=== PATIENT | female | born 1950 | race Caucasian/White ===

== ENCOUNTER → 2017-07-02 | Outpatient (CLI) | payer MEDICARE ==
--- NOTE | 2017-07-02 16:48 | XR ---
EXAMINATION TYPE: XR lumbosacral spine min 4V DATE OF EXAM: 07/02/2017 COMPARISON: NONE HISTORY: 67-year-old female with right-sided low back pain TECHNIQUE: 5 views FINDINGS: Degenerated dextro convex scoliosis. Hypertrophic facet arthropathy lower lumbar spine. No pars inter articularis defect identified. Advanced degenerative disc disease with disc vacuum L4-L5 and mild at additional levels throughout th e lumbar spine. Grade 1 anterolistheses at L3-L4, L4-L5, and L5-S1. Vertebral body heights are maintained. Baastrup's disease. IMPRESSION: 1. Degenerated dextroconvex scoliosis. 2. Hypertrophic facet arthropathy throughout with grade 1 anterolistheses from L3 through S1 levels. 3. Advanced degenerative disc disease at L4-L5 and at least mild at other levels in the lumbar spine. 4. Baastrup's disease.
== END | disposition home or self-care (01) ==
LOC: RADXRYALE 12:43
PROVIDERS: ATTEND Internal Medicine
DX: M51.16 Intervertebral disc disorders with radiculopathy, lumbar region (principal); M43.17 Spondylolisthesis, lumbosacral region; M46.97 Unspecified inflammatory spondylopathy, lumbosacral region; M48.27 Kissing spine, lumbosacral region; M41.87 Other forms of scoliosis, lumbosacral region
CPT/HCPCS: 72110

== ENCOUNTER → 2018-02-07 | Outpatient (CLI) | payer MEDICARE ==
--- NOTE | 2018-02-07 10:59 | MR ---
MR lumbar spine wo con Sciatica of right side Multiplanar, multiecho imaging of the lumbar spine was obtained without contrast on a 3 Leandra magnet. REFERENCE:None. FINDINGS: There are extrarenal pelves present bilaterally. Paraspinal soft tissues are otherwise unr emarkable. There is a moderate S-shaped scoliosis, convex to the right in the lumbar region and to the left of t he thoracic region. There is a degenerative grade 1 spondylolisthesis of L4 on L5. Alignment is other davis maintained. Cord signal is maintained. The conus ends normally at the level of the mid body of L1. At T12-L1, intervertebral foramina appear well maintained. There is no significant compressive discop athy. There is mild facet arthropathy. At L1-2, there is a diffuse disc displacement slightly eccentric towards the left. The intervertebral foramina are well maintained. There is hypertrophic change and capsulitis in the facets. At L2-3, intervertebral foramina appear reasonably well-maintained. There is a bilobed disc displacem ent. This hypertrophic change and capsulitis within the facets. There is mild trefoiling of the theca l sac. L3-4, the intervertebral foramina are reasonably well-maintained. There is a right paracentral disc d isplacement mildly deforming the thecal sac. There is hypertrophic change and capsulitis in the facet s. At L4-5, there is disc space loss. Intervertebral foramina appear reasonably well-maintained. There i s marked facet arthropathy. There is a degenerative 1 spondylolisthesis of L4 on L5. There is a promi nent pseudodisc. There is moderate to severe central canal stenosis. L5-S1, the intervertebral foramina are well maintained. There is no significant compressive discopath y. There are hypertrophic changes in the facets. IMPRESSION: 1. DEGENERATIVE GRADE 1 SPONDYLOLISTHESIS OF L4 AND L5 CAUSING MODERATE TO SEVERE CENTRAL CANAL STENO SIS. 2. DIFFUSE DEGENERATIVE DISC DISEASE AND FACET ARTHROPATHY.
== END ==
LOC: RADMRIMAIN 10:05
PROVIDERS: ATTEND Internal Medicine
DX: M48.061 Spinal stenosis, lumbar region without neurogenic claudication (principal); M43.16 Spondylolisthesis, lumbar region; M51.16 Intervertebral disc disorders with radiculopathy, lumbar region; M46.96 Unspecified inflammatory spondylopathy, lumbar region
CPT/HCPCS: 72148

== ENCOUNTER 2019-04-06 16:21 | Inpatient (IN) | payer MEDICARE ==
[2019-04-06] MEDS ORDERED: MORPHINE SULFATE 4 MG/ML SYRINGE IVP STA (16:28)
[2019-04-06] MEDS ORDERED: SODIUM CHLORIDE 0.9% 1,000 ML IV STA (16:28)
[2019-04-06] MEDS ORDERED: PROPOFOL 10 MG/ML 20 ML VIAL IV ONE (16:38)
[2019-04-06 17:20] LABS: Basophils % (A) 0 %; Eosinophils # (A) 0.1 k/uL (0-0.7); Eosinophils % (A) 1 %; HCT 38.6 % (34.0-46.0); HGB 12.6 gm/dL (11.4-16.0); Lymphocytes # (A) 0.9 k/uL (1.0-4.8); Lymphocytes % (A) 10 %; MCH 30.3 pg (25.0-35.0); MCHC 32.8 g/dL (31.0-37.0); MCV 92.5 fL (80.0-100.0); Mean Platelet Volume 8.6; Monocytes # (A) 0.4 k/uL (0-1.0); Monocytes % (A) 4 %; Neutrophils # (A) 7.6 k/uL (1.3-7.7); Neutrophils % (A) 85 %; Platelet Count 236 k/uL (150-450); RBC 4.17 m/uL (3.80-5.40); RDW 12.9 % (11.5-15.5)
[2019-04-06 17:29] LABS: Partial Thromboplastin Time 23.5 sec (22.0-30.0); Prothrombin Time 10.6 sec (9.0-12.0)
[2019-04-06 17:31] LABS: Appearance,Urine Clear (Clear); Bilirubin,Urine Negative (Negative); Blood,Urine Negative (Negative); Color,Urine Colorless; Glucose,Urine (UA) Negative (Negative); Ketones,Urine Negative (Negative); Leukocyte Esterase,Urine Negative (Negative); Nitrite,Urine Negative (Negative); PH, Urine 7.5 (5.0-8.0); Protein,Urine Negative (Negative); Specific Gravity,Urine 1.006 (1.001-1.035); Urobilinogen,Urine <2.0 mg/dL (<2.0)
[2019-04-06 17:34] LABS: ALT 14 U/L (4-34); AST 28 U/L (14-36); African American GFR (CKD) >90 (>60 ml/min/1.73 sqM); Albumin 3.7 g/dL (3.5-5.0); Alkaline Phosphatase 60 U/L (38-126); Anion Gap 8 mmol/L; Blood Urea Nitrogen 14 mg/dL (7-17); Calcium 8.7 mg/dL (8.4-10.2); Carbon Dioxide 23 mmol/L (22-30); Chloride 106 mmol/L (98-107); Creatine Kinase 93 U/L (30-135); Glucose 101 mg/dL (74-99); Magnesium 1.8 mg/dL (1.6-2.3); Non-African American GFR(CKD) >90 (>60 ml/min/1.73 sqM); Phosphorus 2.9 mg/dL (2.5-4.5); Sodium 137 mmol/L (137-145); Total Bilirubin 0.5 mg/dL (0.2-1.3); Total Protein 6.4 g/dL (6.3-8.2)
--- NOTE | 2019-04-06 17:47 | ED ---
Weakness HPI - General Chief complaint: Fall Stated complaint: fall Time Seen by Provider: 04/06/19 16:24 Source: patient, RN notes reviewed, old records reviewed Mode of arrival: EMS - History of Present Illness Initial comments: This is a 68-year-old female DF for evaluation. Patient has a for evaluation regards to significant right-sided femur pain, continue severe pain upon transfer to the ER. Patient has no other traumatic injury noted denying had a neck pain, no loss of consciousness, patient of trip and fall while at home today. Trip over a garbage can landing and right-sided, severe history of osteopenia no longer on therapy. Patient has multiple orthopedic surgeries yet not this hospital -: hour(s) (Pain status post fall) Location: RLE Severity: severe (Pain, fracture deformity) Severity scale (1-10): 9 Consistency: constant Improves with: none Worsens with: none Context: trauma/injury Associated Symptoms: denies other symptoms - Related Data Home Medications Medication Instructions Recorded Confirmed ALPRAZolam [Xanax] 0.25 mg PO DAILY PRN 04/06/19 04/06/19 Alendronate Sodium [Fosamax] 70 mg PO SA 04/06/19 04/06/19 Citalopram Hydrobromide 40 mg PO DAILY 04/06/19 04/06/19 [Citalopram HBr] Cyanocobalamin (Vitamin B-12) 1,000 mcg PO DAILY 04/06/19 04/06/19 [Vitamin B-12] Fexofenadine HCl [Stefania Allergy] 180 mg PO DAILY 04/06/19 04/06/19 Gabapentin [Neurontin] 300 mg PO DAILY 04/06/19 04/06/19 Meloxicam 7.5 mg PO BID 04/06/19 04/06/19 Olmesartan Medoxomil [Benicar] 20 mg PO DAILY 04/06/19 04/06/19 Oxybutynin Chloride [Oxybutynin 15 mg PO DAILY 04/06/19 04/06/19 Chloride ER] Allergies Allergy/AdvReac Type Severity Reaction Status Date / Time Penicillins Allergy Swelling Verified 04/06/19 19:36 Review of Systems ROS Statement: Those systems with pertinent positive or pertinent negative responses have been documented in the HPI. ROS Other: All systems not noted in ROS Statement are negative. Past Medical History Past Medical History: Hypertension History of Any Multi-Drug Resistant Organisms: None Reported Past Surgical History: Back Surgery, Orthopedic Surgery Past Psychological History: No Psychological Hx Reported Smoking Status: Never smoker Past Alcohol Use History: Occasional Past Drug Use History: None Reported General Exam General appearance: alert, in no apparent distress Head exam: Present: atraumatic, normocephalic, normal inspection Eye exam: Present: normal appearance, PERRL, EOMI. Absent: scleral icterus, conjunctival injection, periorbital swelling ENT exam: Present: normal exam, mucous membranes moist Neck exam: Present: normal inspection. Absent: tenderness, meningismus, lymphadenopathy Respiratory exam: Present: normal lung sounds bilaterally. Absent: respiratory distress, wheezes, rales, rhonchi, stridor Cardiovascular Exam: Present: regular rate, normal rhythm, normal heart sounds. Absent: systolic murmur, diastolic murmur, rubs, gallop, clicks GI/Abdominal exam: Present: soft, normal bowel sounds. Absent: distended, tenderness, guarding, rebound, rigid Extremities exam: Present: normal inspection, full ROM, normal capillary refill, other (Significant deformity of right lower extremity, positive pulses dorsalis pedis posterior tibialis +2). Absent: tenderness, pedal edema, joint swelling, calf tenderness Back exam: Present: normal inspection Neurological exam: Present: alert, oriented X3, CN II-XII intact Psychiatric exam: Present: normal affect, normal mood Skin exam: Present: warm, dry, intact, normal color. Absent: rash Course Vital Signs 04/06/19 04/06/19 04/06/19 16:38 17:07 17:11 Temperature 98.3 F Pulse Rate 90 92 88 Pulse Rate [ Pulse Oximetery ] Respiratory 20 16 16 Rate Blood Pressure 192/109 197/105 188/99 Blood Pressure [Right Arm] O2 Sat by Pulse 97 99 94 L Oximetry 04/06/19 04/06/19 04/06/19 17:13 17:18 17:20 Temperature Pulse Rate 86 87 Pulse Rate [ Pulse Oximetery ] Respiratory 16 15 Rate Blood Pressure 158/76 158/76 Blood Pressure [Right Arm] O2 Sat by Pulse 96 100 95 Oximetry 04/06/19 04/06/19 04/06/19 18:00 19:31 20:00 Temperature Pulse Rate 86 90 91 Pulse Rate [ Pulse Oximetery ] Respiratory 6 L 16 18 Rate Blood Pressure 149/89 142/72 142/72 Blood Pressure [Right Arm] O2 Sat by Pulse 98 98 98 Oximetry 04/06/19 04/06/19 04/06/19 20:49 20:56 21:00 Temperature 99.0 F Pulse Rate 87 88 Pulse Rate [ 80 Pulse Oximetery ] Respiratory 15 16 18 Rate Blood Pressure 133/87 131/81 Blood Pressure 153/71 [Right Arm] O2 Sat by Pulse 96 99 Oximetry 04/06/19 04/06/19 04/06/19 22:00 23:00 23:02 Temperature 98.0 F Pulse Rate 88 77 Pulse Rate [ Pulse Oximetery ] Respiratory 16 16 Rate Blood Pressure 123/81 121/71 Blood Pressure [Right Arm] O2 Sat by Pulse 98 98 Oximetry - Reevaluation(s) Reevaluation #1: Medical record is reviewed Patient femur fracture is reduced, pain is controlled - Consultations Consultation #1: Spoke with Dr. Fox who is agreeable for admission EKG Findings - EKG Comments: EKG Findings:: EKG shows sinus rhythm rate of 91, OK 136, QRS 76, QTc 455 Procedures - [place] Protocol (Time Out) Procedure Performed:: Moderate sedation reduction right femur Performing Provider: Nic Sotelo Nurse: Tylor Rocha Respiratory Therapist: Nazia Kowalski Patient Identification (2 identifiers required): Chart, Verbal, Name Patient/Legal Assistant Guest Services Manager has Confirmed: Identity Site: rt femur Site Marked: No Site Verified With Patient/Guardian: Yes Final Confirmation: Procedure, Site, Patient Position, Confirmed w/Provider Medical Decision Making - Medical Decision Making 5 female here for evaluation status post trip and fall mechanical trip and fall with right midshaft femur fracture. Patient will be admitted for orthopedic evaluation treatment, pain control and management - Lab Data Result diagrams: 04/06/19 16:47 04/06/19 16:47 Lab Results 04/06/19 04/06/19 04/06/19 Range/Units 16:47 16:47 16:47 WBC 9.0 (3.8-10.6) k/uL RBC 4.17 (3.80-5.40) m/uL Hgb 12.6 (11.4-16.0) gm/dL Hct 38.6 (34.0-46.0) % MCV 92.5 (80.0-100.0) fL MCH 30.3 (25.0-35.0) pg MCHC 32.8 (31.0-37.0) g/dL RDW 12.9 (11.5-15.5) % Plt Count 236 (150-450) k/uL Neutrophils % 85 % Lymphocytes % 10 % Monocytes % 4 % Eosinophils % 1 % Basophils % 0 % Neutrophils # 7.6 (1.3-7.7) k/uL Lymphocytes # 0.9 L (1.0-4.8) k/uL Monocytes # 0.4 (0-1.0) k/uL Eosinophils # 0.1 (0-0.7) k/uL Basophils # 0.0 (0-0.2) k/uL PT (9.0-12.0) sec INR (<1.2) APTT (22.0-30.0) sec Sodium 137 (137-145) mmol/L Potassium 4.0 (3.5-5.1) mmol/L Chloride 106 (98-107) mmol/L Carbon Dioxide 23 (22-30) mmol/L Anion Gap 8 mmol/L BUN 14 (7-17) mg/dL Creatinine 0.66 (0.52-1.04) mg/dL Est GFR (CKD-EPI)AfAm >90 (>60 ml/min/1.73 sqM) Est GFR (CKD-EPI)NonAf >90 (>60 ml/min/1.73 sqM) Glucose 101 H (74-99) mg/dL Plasma Lactic Acid Matti 1.1 (0.7-2.0) mmol/L Calcium 8.7 (8.4-10.2) mg/dL Phosphorus 2.9 (2.5-4.5) mg/dL Magnesium 1.8 (1.6-2.3) mg/dL Total Bilirubin 0.5 (0.2-1.3) mg/dL AST 28 (14-36) U/L ALT 14 (4-34) U/L Alkaline Phosphatase 60 (38-126) U/L Creatine Kinase 93 (30-135) U/L Troponin I (0.000-0.034) ng/mL Total Protein 6.4 (6.3-8.2) g/dL Albumin 3.7 (3.5-5.0) g/dL Urine Color Urine Appearance (Clear) Urine pH (5.0-8.0) Ur Specific Manly (1.001-1.035) Urine Protein (Negative) Urine Glucose (UA) (Negative) Urine Ketones (Negative) Urine Blood (Negative) Urine Nitrite (Negative) Urine Bilirubin (Negative) Urine Urobilinogen (<2.0) mg/dL Ur Leukocyte Esterase (Negative) 04/06/19 04/06/19 04/06/19 Range/Units 16:47 16:47 16:47 WBC (3.8-10.6) k/uL RBC (3.80-5.40) m/uL Hgb (11.4-16.0) gm/dL Hct (34.0-46.0) % MCV (80.0-100.0) fL MCH (25.0-35.0) pg MCHC (31.0-37.0) g/dL RDW (11.5-15.5) % Plt Count (150-450) k/uL Neutrophils % % Lymphocytes % % Monocytes % % Eosinophils % % Basophils % % Neutrophils # (1.3-7.7) k/uL Lymphocytes # (1.0-4.8) k/uL Monocytes # (0-1.0) k/uL Eosinophils # (0-0.7) k/uL Basophils # (0-0.2) k/uL PT 10.6 (9.0-12.0) sec INR 1.0 (<1.2) APTT 23.5 (22.0-30.0) sec Sodium (137-145) mmol/L Potassium (3.5-5.1) mmol/L Chloride (98-107) mmol/L Carbon Dioxide (22-30) mmol/L Anion Gap mmol/L BUN (7-17) mg/dL Creatinine (0.52-1.04) mg/dL Est GFR (CKD-EPI)AfAm (>60 ml/min/1.73 sqM) Est GFR (CKD-EPI)NonAf (>60 ml/min/1.73 sqM) Glucose (74-99) mg/dL Plasma Lactic Acid Matti (0.7-2.0) mmol/L Calcium (8.4-10.2) mg/dL Phosphorus (2.5-4.5) mg/dL Magnesium (1.6-2.3) mg/dL Total Bilirubin (0.2-1.3) mg/dL AST (14-36) U/L ALT (4-34) U/L Alkaline Phosphatase (38-126) U/L Creatine Kinase (30-135) U/L Troponin I <0.012 (0.000-0.034) ng/mL Total Protein (6.3-8.2) g/dL Albumin (3.5-5.0) g/dL Urine Color Colorless Urine Appearance Clear (Clear) Urine pH 7.5 (5.0-8.0) Ur Specific Manly 1.006 (1.001-1.035) Urine Protein Negative (Negative) Urine Glucose (UA) Negative (Negative) Urine Ketones Negative (Negative) Urine Blood Negative (Negative) Urine Nitrite Negative (Negative) Urine Bilirubin Negative (Negative) Urine Urobilinogen <2.0 (<2.0) mg/dL Ur Leukocyte Esterase Negative (Negative) - Radiology Data Radiology results: report reviewed (X-ray right hip and right femur is positive for midshaft femur fracture), image reviewed Disposition Clinical Impression: Fall, Closed right femoral fracture Disposition: ADMITTED IP TO THIS [facility] Condition: Fair Is patient prescribed a controlled substance at d/c from ED?: No
--- NOTE | 2019-04-06 18:09 | XR ---
EXAMINATION TYPE: XR femur RT DATE OF EXAM: 04/06/2019 COMPARISON: NONE HISTORY: Post reduction. Trauma. TECHNIQUE: 2 views FINDINGS: 2 frontal views of the right femur were obtained and show a mid shaft fracture of the right femur with 100% medial displacement of the distal fragment on the frontal view. The hip joint and kn ee joint appear intact. IMPRESSION: Displaced mid shaft fracture of the right femur.
--- NOTE | 2019-04-06 19:15 | XR ---
EXAMINATION TYPE: XR femur RT DATE OF EXAM: 04/06/2019 COMPARISON: Today HISTORY: Fall. Pain. TECHNIQUE: 4 views FINDINGS: There is mid shaft fracture of the right femur. There is 2 cm overriding of the fragments. There is 100% medial displacement distal fragment. IMPRESSION: Acute mid shaft fracture of the right femur with increased overlap compared to exam one h our ago.
--- NOTE | 2019-04-06 19:18 | XR ---
EXAMINATION TYPE: XR Hip RT and AP Pelvis DATE OF EXAM: 04/06/2019 COMPARISON: None HISTORY: Fall. Pain. TECHNIQUE: 3 views FINDINGS: Pelvic ring is intact. There is calcified uterine fibroid. Sacroiliac joints are intact. Pr oximal right femur and hip joint are intact. IMPRESSION: No acute abnormality of the pelvis and right hip.
--- NOTE | 2019-04-06 19:19 | XR ---
EXAMINATION TYPE: XR chest 1V DATE OF EXAM: 04/06/2019 COMPARISON: NONE HISTORY: Pain TECHNIQUE: Single view FINDINGS: There is no heart failure nor confluent pneumonic infiltrate. Costophrenic angles are clear . There are chest leads. IMPRESSION: No active cardiopulmonary disease. Normal heart.
[2019-04-06] MEDS: MORPHINE SULFATE 4 MG/ML SYRINGE IVP PRN (19:30)
[2019-04-06] MEDS ORDERED: SODIUM CHLORIDE 0.9% 1,000 ML IV ONE (19:51)
[2019-04-07] MEDS: MORPHINE SULFATE 4 MG/ML SYRINGE IVP PRN ×2 (00:23→05:13)
[2019-04-07] MEDS ORDERED: DIAZEPAM 5 MG/ML 2 ML INJ IVP PRN (08:59)
--- NOTE | 2019-04-07 09:48 | P.HPOR ---
History of Present Illness H&P Date: 04/07/19 Chief Complaint: Right femur fracture Patient is a pleasant 68-year-old female seen at bedside this morning. She was admitted through the emergency department last evening after a fall at home. She states she was in her kitchen and stumbled forward when she injured her righ t thigh. She felt pain immediately and saw that her thigh was deformed. She called EMS and was transported to the emergency department here at [facility]. X-rays of the right hip and femur showed a displaced shortened right mid shaft femur fracture. She was placed in a long leg splint. She continues to have pain with any movement this morning as expected. She has no other musculoskeletal pain or complaints currently. She denies numbness or tingling throughout the right lower extremity. She denies calf pain, fever, chills, chest pain or shortness of breath. She has a past medical history positive for prior lumbar spine surgery, osteopenia, hypertension. Past Medical History Past Medical History: Hypertension History of Any Multi-Drug Resistant Organisms: None Reported Past Surgical History: Back Surgery, Orthopedic Surgery Past Psychological History: No Psychological Hx Reported Smoking Status: Never smoker Past Alcohol Use History: Occasional Past Drug Use History: None Reported Medications and Allergies Home Medications Medication Instructions Recorded Confirmed Type ALPRAZolam [Xanax] 0.25 mg PO DAILY PRN 04/06/19 04/06/19 History Alendronate Sodium [Fosamax] 70 mg PO SA 04/06/19 04/06/19 History Citalopram Hydrobromide 40 mg PO DAILY 04/06/19 04/06/19 History [Citalopram HBr] Cyanocobalamin (Vitamin B-12) 1,000 mcg PO DAILY 04/06/19 04/06/19 History [Vitamin B-12] Fexofenadine HCl [Stefania Allergy] 180 mg PO DAILY 04/06/19 04/06/19 History Gabapentin [Neurontin] 300 mg PO DAILY 04/06/19 04/06/19 History Meloxicam 7.5 mg PO BID 04/06/19 04/06/19 History Olmesartan Medoxomil [Benicar] 20 mg PO DAILY 04/06/19 04/06/19 History Oxybutynin Chloride [Oxybutynin 15 mg PO DAILY 04/06/19 04/06/19 History Chloride ER] Allergies Allergy/AdvReac Type Severity Reaction Status Date / Time Penicillins Allergy Swelling Verified 04/06/19 19:36 Physical Examination Inspection of the right lower extremity shows long leg splint in place. There are no wounds or lacerations throughout the right lower extremity. Range of motion of the hip and knee is not tested due to the fracture. She has painless active range of motion of the ankle, foot and toes. Motor and sensation is grossly intact with right lower extremity. The ankle and foot are nontender. The calf is soft and nontender. There is 2+ dorsalis pedis pulse present and less than 2 second capillary refill present. Results X-rays of the right femur show a midshaft displaced and shortened right femur fracture. Negative hip fracture - Labs Labs: Abnormal Lab Results - Last 24 Hours (Table) 04/06/19 04/06/19 Range/Units 16:47 16:47 Lymphocytes # 0.9 L (1.0-4.8) k/uL Glucose 101 H (74-99) mg/dL H & H 04/06/19 Range/Units 16:47 Hgb 12.6 (11.4-16.0) gm/dL Hct 38.6 (34.0-46.0) % Coagulation 04/06/19 Range/Units 16:47 INR 1.0 (<1.2) Result Diagrams: 04/06/19 16:47 04/06/19 16:47 Assessment and Plan (1) Closed right femoral fracture Narrative/Plan: The patient has been reviewed with Dr. Fox. Plan is to proceed with surgical intervention including a closed reduction with internal fixation utilizing a retrograde femoral nail. The procedure,benefits, possible risks and complications have been reviewed with the patient. She desires to proceed. The procedure has been ordered along with consent. She has been nothing by mouth. Internal medicine has been consulted for preoperative clearance and perioperative medical management. She'll continue with routine postop orthopedic protocol postoperatively and likely will need placement versus discharge to home with help. Current Visit: Yes Status: Acute Priority: Medium Code(s): S72.91XA - UNSP FRACTURE OF RIGHT FEMUR, INIT FOR CLOS FX SNOMED Code(s): 55509724 Time with Patient: Less than 30
[2019-04-07] MEDS: HYDROmorphone 0.5 MG/0.5 ML SYRINGE IVP PRN ×2 (10:37→15:15)
[2019-04-07] MEDS ORDERED: CLINDAMYCIN 900 MG in DEXTROSE 5% IN WATER 50 ML IVPB STA ×2 (13:39)
--- NOTE | 2019-04-07 14:57 | P.CONS ---
History of Present Illness - Reason for Consult Medical clearance - History of Present Illness Patient is a pleasant 68-year-old female was admitted after a fall which is a mechanical fall found to have right femoral fracture. Medicine was consulted for preoperative clearance patient doesn't smoke functional lumen not dependent on ADLs and IADLs, denied any coronary artery disease history denied any heat CHF history. Her only significant history is hypertension EKG was done any of which showed some nonspecific ST-T wave changes which are insignificant patient presently doesn't have any chest pain or shortness of breath. Patient is otherwise clinically doing well pain is fairly well controlled at this time but the she does have increased pain upon slightest movement. Review of Systems REVIEW OF SYSTEMS: CONSTITUTIONAL: No fever, no malaise, no fatigue. HEENT: No recent visual problems or hearing problems. Denied any sore throat. CARDIOVASCULAR: No chest pain, orthopnea, PND, no palpitations, no syncope. PULMONARY: No shortness of breath, no cough, no hemoptysis. GASTROINTESTINAL: No diarrhea, no nausea, no vomiting, no abdominal pain. NEUROLOGICAL: No headaches, no weakness, no numbness. HEMATOLOGICAL: Denies any bleeding or petechiae. GENITOURINARY: Denies any burning micturition, frequency, or urgency. MUSCULOSKELETAL/RHEUMATOLOGICAL: Denies any joint pain, swelling, or any muscle pain. ENDOCRINE: Denies any polyuria or polydipsia. The rest of the 14-point review of systems is negative. Past Medical History Past Medical History: Hypertension History of Any Multi-Drug Resistant Organisms: None Reported Past Surgical History: Back Surgery, Orthopedic Surgery Past Psychological History: No Psychological Hx Reported Smoking Status: Never smoker Past Alcohol Use History: Occasional Past Drug Use History: None Reported Medications and Allergies Home Medications Medication Instructions Recorded Confirmed Type ALPRAZolam [Xanax] 0.25 mg PO DAILY PRN 04/06/19 04/06/19 History Alendronate Sodium [Fosamax] 70 mg PO SA 04/06/19 04/06/19 History Citalopram Hydrobromide 40 mg PO DAILY 04/06/19 04/06/19 History [Citalopram HBr] Cyanocobalamin (Vitamin B-12) 1,000 mcg PO DAILY 04/06/19 04/06/19 History [Vitamin B-12] Fexofenadine HCl [Stefania Allergy] 180 mg PO DAILY 04/06/19 04/06/19 History Gabapentin [Neurontin] 300 mg PO DAILY 04/06/19 04/06/19 History Meloxicam 7.5 mg PO BID 04/06/19 04/06/19 History Olmesartan Medoxomil [Benicar] 20 mg PO DAILY 04/06/19 04/06/19 History Oxybutynin Chloride [Oxybutynin 15 mg PO DAILY 04/06/19 04/06/19 History Chloride ER] Allergies Allergy/AdvReac Type Severity Reaction Status Date / Time Penicillins Allergy Swelling Verified 04/06/19 19:36 Physical Exam Vitals: Vital Signs Temp Pulse Pulse Resp BP BP Pulse Ox 04/07/19 07:00 99.4 F 77 16 123/69 97 04/07/19 00:00 16 04/06/19 23:23 99.0 F 80 15 153/71 96 04/06/19 23:02 98.0 F 04/06/19 23:00 77 16 121/71 98 04/06/19 22:00 88 16 123/81 98 04/06/19 21:00 88 18 131/81 04/06/19 20:56 87 16 133/87 99 04/06/19 20:49 99.0 F 80 15 153/71 96 04/06/19 20:00 91 18 142/72 98 04/06/19 19:31 90 16 142/72 98 04/06/19 18:00 86 6 L 149/89 98 04/06/19 17:20 87 15 158/76 95 04/06/19 17:18 100 04/06/19 17:13 86 16 158/76 96 04/06/19 17:11 88 16 188/99 94 L 04/06/19 17:07 92 16 197/105 99 04/06/19 16:38 98.3 F 90 20 192/109 97 Intake and Output 04/06/19 04/07/19 04/07/19 22:59 06:59 14:59 Output Total 200 800 Balance -200 -800 Output: Urine 200 800 Uretheral (Fatima) 200 Other: Weight 62.596 kg PHYSICAL EXAMINATION: GENERAL: The patient is alert and oriented x3, not in any acute distress. Well developed, well nourished. HEENT: Pupils are round and equally reacting to light. EOMI. No scleral icterus. No conjunctival pallor. Normocephalic, atraumatic. No pharyngeal erythema. No thyromegaly. CARDIOVASCULAR: S1 and S2 present. No murmurs, rubs, or gallops. PULMONARY: Chest is clear to auscultation, no wheezing or crackles. ABDOMEN: Soft, nontender, nondistended, normoactive bowel sounds. No palpable organomegaly. MUSCULOSKELETAL: Deferred to orthopedic surgery EXTREMITIES: No cyanosis, clubbing, or pedal edema. NEUROLOGICAL: Gross neurological examination did not reveal any focal deficits. SKIN: No rashes. Results CBC & Chem 7: 04/06/19 16:47 04/06/19 16:47 Labs: Abnormal Lab Results - Last 24 Hours (Table) 04/06/19 04/06/19 Range/Units 16:47 16:47 Lymphocytes # 0.9 L (1.0-4.8) k/uL Glucose 101 H (74-99) mg/dL Assessment and Plan Plan: -The right femoral fracture preoperative clearance: Patient is low operative risk expected to do well in the perioperative and postoperative period although will hold off on antidepressant medication because of expected perioperative hyp otension. Will be resumed depending on her vitals are after surgery. No further testing is necessary for preoperative clearance. -Hypertension management as mentioned above -Depression will be resumed on the citalopram -Peripheral neuropathy for which patient is on gabapentin, etiology of peripher al neuropathy is most probably low back pain and her declot the which is chronic -Urinary incontinence patient is on oxybutynin which will be continued -DVT prophylaxis pain management as per primary service
[2019-04-07] MEDS ORDERED: ONDANSETRON 4 MG/2 ML VIAL IVP PRN (15:01)
[2019-04-07] MEDS ORDERED: HYDROmorphone 0.5 MG/0.5 ML SYRINGE IVP PRN ×3 (16:35)
[2019-04-07] MEDS ORDERED: HYDROcodone/APAP 5-325MG 1 EACH TAB PO PRN (16:35)
[2019-04-07] MEDS ORDERED: NALOXONE 0.4 MG/ML 1 ML VIAL IV PRN (16:35)
[2019-04-07] MEDS ORDERED: BISACODYL 10 MG SUPP RECTAL PRN (16:35)
[2019-04-07] MEDS ORDERED: traMADol 50 MG TAB PO PRN (16:35)
[2019-04-07] MEDS ORDERED: DIAZEPAM 5 MG TAB PO PRN (16:35)
[2019-04-07] MEDS ORDERED: MAGNESIUM HYDROXIDE 2,400 MG/10 ML CUP PO PRN (16:35)
[2019-04-07] MEDS ORDERED: TEMAZEPAM 15 MG CAP PO PRN (16:35)
[2019-04-07] MEDS ORDERED: NA PHOS,M-B/NA PHOS,DI-BA 133 ML ENEMA RECTAL PRN (16:35)
[2019-04-07] MEDS ORDERED: MIDAZOLAM 2 MG/2 ML VIAL ONE (19:14)
[2019-04-07] MEDS ORDERED: MEPERIDINE 50 MG/ML SYRINGE ONE (19:14)
[2019-04-07] MEDS ORDERED: ONDANSETRON 4 MG/2 ML VIAL ONE (19:14)
[2019-04-07] MEDS ORDERED: PROPOFOL 10 MG/ML 20 ML VIAL IV ONE (19:14)
[2019-04-07] MEDS ORDERED: fentaNYL (PF) 50 MCG/ML 2 ML AMP ONE (19:14)
[2019-04-07] MEDS ORDERED: PHENYLEPHRINE-0.9% NACL SYG 1 MG/10 ML SYRINGE ONE (19:14)
[2019-04-07] MEDS ORDERED: IV FLUID CONTINUATION 1,000 ML IV ONE (19:16)
[2019-04-07] MEDS ORDERED: LACTATED RINGERS 1,000 ML IV ONE (19:53)
[2019-04-07] MEDS ORDERED: CLINDAMYCIN 600 MG in SODIUM CHLORIDE 0.9% 1,000 ML IRRIGATION ONE (20:06)
[2019-04-07] MEDS: ASPIRIN 325 MG TAB PO SCH (22:12)
[2019-04-07] MEDS: CLINDAMYCIN 900 MG in DEXTROSE 5% IN WATER 50 ML IVPB SCH ×2 (22:12)
[2019-04-07] MEDS: SENNOSIDES-DOCUSATE SODIUM 1 EACH TAB PO SCH (22:13)
[2019-04-07] MEDS: LACTATED RINGERS 1,000 ML IV SCH (22:14)
--- NOTE | 2019-04-07 22:43 | FL ---
EXAMINATION TYPE: FL guidance operating room, XR femur RT DATE OF EXAM: 04/07/2019 CLINICAL HISTORY: Right femur fracture. TECHNIQUE: Fluoroscopy. Limited intraoperative views right femur. COMPARISON: Right femur x-ray from yesterday. FINDINGS: Fluoroscopic guidance was provided during open reduction internal fixation procedure perfo rmed by Dr. Fox. A total of 3 minutes 20 seconds of fluoroscopic time was utilized during the pro cedure and 8 spot images was acquired. Images acquired show placement of large intramedullary ellen with 2 transverse fixating screws and sing le proximal transverse fixating screw through acute comminuted displaced fracture mid shaft right fem ur with improved alignment seen after reduction and fixation. IMPRESSION: As Above.
[2019-04-08] MEDS: HYDROmorphone 0.5 MG/0.5 ML SYRINGE IVP PRN (00:28)
[2019-04-08] MEDS: CLINDAMYCIN 900 MG in DEXTROSE 5% IN WATER 50 ML IVPB SCH ×2 (04:00)
[2019-04-08] MEDS: HYDROcodone/APAP 10-325MG 1 EACH TAB PO PRN ×3 (04:05→19:50)
[2019-04-08 07:29] LABS: Basophils % (A) 0 %; Eosinophils % (A) 0 %; HCT 28.2 % (34.0-46.0); Lymphocytes % (A) 14 %; MCH 30.1 pg (25.0-35.0); MCHC 32.5 g/dL (31.0-37.0); MCV 92.7 fL (80.0-100.0); Mean Platelet Volume 8.6; Monocytes # (A) 0.7 k/uL (0-1.0); Monocytes % (A) 9 %; Neutrophils # (A) 5.7 k/uL (1.3-7.7); Neutrophils % (A) 75 %; Platelet Count 180 k/uL (150-450); RBC 3.05 m/uL (3.80-5.40); RDW 13.1 % (11.5-15.5); WBC 7.6 k/uL (3.8-10.6)
[2019-04-08 07:47] LABS: HGB 9.2 gm/dL (11.4-16.0)
[2019-04-08] MEDS: CITALOPRAM HYDROBROMIDE 20 MG TAB PO SCH (08:00)
[2019-04-08] MEDS: GABAPENTIN 300 MG CAP PO SCH (08:00)
[2019-04-08] MEDS: OXYBUTYNIN 15 MG TAB.ER.24 PO SCH (08:01)
[2019-04-08] MEDS: ASPIRIN 325 MG TAB PO SCH ×2 (08:01→19:50)
--- NOTE | 2019-04-08 09:35 | OP ---
OPERATIVE REPORT DATE OF PROCEDURE: 04/07/2019 SURGEON: Les Fox MD. AN/SYQ 13 NAV/C2 OPERATOR: DEEJAY Church. PREOPERATIVE DIAGNOSIS: Right closed femoral shaft fracture. POSTOPERATIVE DIAGNOSIS: Right closed femoral shaft fracture. PROCEDURE PERFORMED: Retrograde intramedullary nail fixation for right femoral shaft fracture. ANESTHESIA: Spinal with sedation. ESTIMATED BLOOD LOSS: 25 mL. TOURNIQUET: None. DRAINS: None. COMPLICATIONS: None apparent. DISPOSITION: Postanesthesia care unit. INDICATIONS: Nichole is a very pleasant 68-year-old female who unfortunately tripped in her kitchen late last night and sustained an injury to her right leg. She was brought to [facility] via ambulance. Workup including x-rays revealed a displaced midshaft diaphyseal femur fracture. She was admitted to my service. She was cleared for the medical service. Recommendation was for intramedullary nail fixation for her femoral shaft fracture. The risks of the procedure were discussed with her in detail. These risks include, but are not limited to risk of infection, nerve damage, bleeding, pain, and a small risk of deep vein thrombosis which could lead to fatal pulmonary embolism. Further risks include anterior knee pain secondary to the nail insertion and also the possibility for nonunion at the fracture site. All of Nichole's questions were answered to her satisfaction. Appropriate informed consent was obtained. DESCRIPTION OF THE PROCEDURE: Patient identified in the preoperative holding area. Surgical sites marked by both the patient and myself. She was given 900 mg clindamycin IV for prophylactic purposes. She was then transferred to the operative suite. She was placed supine on the operative table. Spinal anesthetic was then administered and dosed per the anesthesia without apparent complication. Nichole was then placed supine on a radiolucent table well-padded in preparation for surgery. Her right lower extremity was than prepped and draped in usual sterile fashion. Standard surgical pause was undertaken to ensure that we were operating on the correct site and that appropriate preoperative antibiotics had been given. All staff in the room were in agreement and we proceeded. Fluoroscopy was then brought in. I did once again check the femoral neck to ensure that there was not any evidence of a fracture, of a femoral neck fracture, and there was not. I then brought a radiolucent triangle in. An approximate 2 to 3 cm incision was made over the center of the patellar tendon in line with the patellar tendon. Dissection was carried down sharply to the paratenon. The paratenon was then incised in line with the fibers of the patellar tendon. A longitudinal split in the tendon was then made. Great care was taken to retract the patellar tendon throughout the case to avoid any iatrogenic damage to the patellar tendon. The guide pin was then placed in the center of the femur and the proper starting point was noted on both AP and lateral fluoroscopic views. The guide pin was then advanced down the shaft of the femur. Starting drill was then used to gain access to the femoral canal. The ball-tipped guidewire was then placed through the starting hole. Fluoroscopy was utilized to then advance the ball-tipped guidewire into the proximal aspect of the fracture. I then proceeded with reaming of the femoral shaft. Started with a 9 mm reamer and incrementally increased in 5 mm increments up to a 12.5 mm reamer. Excellent chatter was noted at 12.5 mm. I then measure the ball-tipped guidewire for length. I had the b2b sales representative open a Petr 360 mm x 11 mm retrograde femoral nail. This was then assembled on to the correction warden on the back table. The retrograde femoral nail was then inserted over the ball-tipped guidewire past the fracture site and into the proximal aspect of the femur. The nail was then advanced proximally until it was essentially at the level of the inferior part of the lesser trochanter. I then proceeded to compress the fracture. It keyed in very nicely. It was rotationally stable at this point as well. I then placed 2 distal locking screws through the static holes in the nail. These were 5 mm locking screws. They were 5 mm locking screws. They were placed using standard technique from lateral to medial utilizing the targeter. The correction warden for the nail was then removed. The knee was then fully extended on the table. I then proceeded to compress the fracture more and then we proceeded with placing the proximal static locking screw. Fluoroscopy was then utilized to find a perfect [place] in the proximal aspect of the nail. A small stab incision was then made in the anterior thigh. Dissection carried down bluntly to the anterior cortex of the femur. The drill was then taken through the anterior and then the posterior cortex of the femur through the static hole in the nail. Again this was done under fluoroscopic imaging. A 5 mm x 32.5 mm screw was then placed from anterior to posterior through the proximal static locking hole in the nail. Fluoroscopic imaging was then utilized to ensure that this screw was indeed through the static locking hole, the nail was of appropriate length and it was. Final fluoroscopic imaging was then taken. The nail was well placed. The length was appropriate. The fracture had been reduced very nicely and it keyed in very nicely. At this point time no further work seemed necessary. All the wounds were thoroughly irrigated with sterile saline solution with antibiotic added. The longitudinal split in the patellar tendon was closed with 2-0 Vicryl interrupted suture. The paratenon was also closed with 2-0 Vicryl suture. Subcutaneous tissue closed with 2-0 Vicryl interrupted suture and the skin was closed with stainless steel yazmin. All of the small stab incisions were closed with 2-0 Vicryl for the subcutaneous tissue and stainless steel yazmin. Sterile dressings were applied. All sponge and needle counts were deemed correct prior to closure. The patient tolerated procedure without apparent complication. She was transferred to the recovery room in stable condition. MMODL / IJN: [id number] /
--- NOTE | 2019-04-08 14:13 | P.PN ---
Subjective Progress Note Date: 04/08/19 Principal diagnosis: Right femur fracture Patient is seen at bedside this morning. She is postop day #1 from closed reduction internal fixation of right femur fracture. She has pain at the surgical site as expected but denies any new complaints. She denies numbness, tingling or calf pain. Review of systems is negative for fever, chills, chest pain, shortness of breath or other Objective - Vital Signs Vital signs: Vital Signs Temp 98.6 F 04/08/19 07:35 Pulse 70 04/08/19 07:35 Resp 12 04/08/19 07:35 BP 118/61 04/08/19 07:35 Pulse Ox 92 L 04/08/19 07:35 Intake & Output 04/07/19 04/08/19 04/08/19 18:59 06:59 18:59 Intake Total 600 1207 Output Total 200 125 Balance 400 1082 Intake: IV 1157 Intake, IV Titration 600 50 Amount Clindamycin 900 mg In 50 Dextrose 5% in Water 50 ml @ 50 mls/hr IVPB Q6H ANGELIA Rx#:[id number] Lactated Ringers 1,000 ml 600 @ 75 mls/hr IV .[id number] ANGELIA Rx#:[id number] Output: Urine 200 100 Uretheral (Fatima) 200 Estimated Blood Loss 25 Other: Voiding Method Indwelling Catheter Indwelling Catheter - Exam Inspection reveals benign surgical wounds. There is no active bleeding or drainage. Neurovascular status is intact throughout the lower extremity with motor and sensation fully intact. Calf is soft and nontender. 2+ dorsalis pedis pulse and less than 2 second cap refill is present. - Constitutional General appearance: Present: no acute distress - Labs CBC & Chem 7: 04/08/19 06:39 04/06/19 16:47 Labs: Abnormal Lab Results - Last 24 Hours (Table) 04/08/19 Range/Units 06:39 RBC 3.05 L (3.80-5.40) m/uL Hgb 9.2 L D (11.4-16.0) gm/dL Hct 28.2 L (34.0-46.0) % Assessment and Plan (1) Closed right femoral fracture Narrative/Plan: She will continue with routine postop orthopedic protocol including pain management, wound care, PT, DVT prophylaxis and medical management. Expect that she will transfer to home in next one to two days Current Visit: Yes Status: Acute Priority: Medium Code(s): S72.91XA - UNSP FRACTURE OF RIGHT FEMUR, INIT FOR CLOS FX SNOMED Code(s): 47394189 Time with Patient: Less than 30
--- NOTE | 2019-04-08 15:22 | P.PN ---
Subjective Patient had closed reduction and fixation of the right femoral fracture. Patient is clinically doing well pain is better controlled patient doesn't have a surgical drain patient blood pressure is low normal will continue to hold on antidepressant medications. Patient did not move the bowel or pass any gas Constitutional: Denied any fatigue denied any fever. Cardio vascular: denied any chest pain, palpitations Gastrointestinal denied any nausea vomiting Pulmonary: Denied any shortness of breath cough Neurologic denied any new focal deficits All inpatient medications were reviewed and appropriate changes in these medications as dictated in the interval history and assessment and plan. Objective - Vital Signs Vital signs: Vital Signs Temp 98.6 F 04/08/19 07:35 Pulse 70 04/08/19 07:35 Resp 12 04/08/19 07:35 BP 118/61 04/08/19 07:35 Pulse Ox 92 L 04/08/19 07:35 Intake & Output 04/07/19 04/08/19 04/08/19 18:59 06:59 18:59 Intake Total 600 1207 Output Total 200 125 Balance 400 1082 Intake: IV 1157 Intake, IV Titration 600 50 Amount Clindamycin 900 mg In 50 Dextrose 5% in Water 50 ml @ 50 mls/hr IVPB Q6H ANGELIA Rx#:[id number] Lactated Ringers 1,000 ml 600 @ 75 mls/hr IV .[id number] ANGELIA Rx#:[id number] Output: Urine 200 100 Uretheral (Fatima) 200 Estimated Blood Loss 25 Other: Voiding Method Indwelling Catheter Indwelling Catheter - Exam PHYSICAL EXAMINATION: GENERAL: The patient is alert and oriented x3, not in any acute distress. Well developed, well nourished. HEENT: Pupils are round and equally reacting to light. EOMI. No scleral icterus. No conjunctival pallor. Normocephalic, atraumatic. No pharyngeal erythema. No thyromegaly. CARDIOVASCULAR: S1 and S2 present. No murmurs, rubs, or gallops. PULMONARY: Chest is clear to auscultation, no wheezing or crackles. ABDOMEN: Soft, nontender, nondistended, normoactive bowel sounds. No palpable organomegaly. MUSCULOSKELETAL: Deferred to orthopedic surgery EXTREMITIES: No cyanosis, clubbing, or pedal edema. NEUROLOGICAL: Gross neurological examination did not reveal any focal deficits. SKIN: No rashes. - Labs CBC & Chem 7: 04/08/19 06:39 04/06/19 16:47 Labs: Abnormal Lab Results - Last 24 Hours (Table) 04/08/19 Range/Units 06:39 RBC 3.05 L (3.80-5.40) m/uL Hgb 9.2 L D (11.4-16.0) gm/dL Hct 28.2 L (34.0-46.0) % Assessment and Plan Plan: -The right femoral fracture or supposed close reduction and internal fixation pain is better controlled due to prophylaxis and pain management as per primary service -Hypertension management as mentioned above -Depression will be resumed on the citalopram -Peripheral neuropathy for which patient is on gabapentin, which is being continued -Urinary incontinence patient is on oxybutynin which will be continued -DVT prophylaxis pain management as per primary service
[2019-04-08] MEDS: LACTATED RINGERS 1,000 ML IV SCH ×2 (16:00→19:52)
[2019-04-08] MEDS: SENNOSIDES-DOCUSATE SODIUM 1 EACH TAB PO SCH (19:50)
[2019-04-09] MEDS: HYDROcodone/APAP 10-325MG 1 EACH TAB PO PRN ×2 (04:41→17:12)
[2019-04-09] MEDS: ASPIRIN 325 MG TAB PO SCH (08:31)
[2019-04-09] MEDS: GABAPENTIN 300 MG CAP PO SCH (08:31)
[2019-04-09] MEDS: CITALOPRAM HYDROBROMIDE 20 MG TAB PO SCH (08:31)
[2019-04-09] MEDS: OXYBUTYNIN 15 MG TAB.ER.24 PO SCH (08:31)
--- NOTE | 2019-04-09 10:06 | P.DS ---
Providers Date of admission: 04/06/19 19:51 Expected date of discharge: 04/09/19 Attending physician: Les Fox Consults: 04/06/19 19:51 Consult Physician Routine Consulting Provider: Abdi Subramanian Consult Reason/Comments: medMgmnt Do you want consulting provider notified?: Yes Primary care physician: Pricilla Gomez - Discharge Diagnosis(es) (1) Closed right femoral fracture Current Visit: Yes Status: Acute Priority: Medium (2) Fall Current Visit: Yes Status: Acute (3) Hypertension Current Visit: Yes Status: Acute (4) Depression Current Visit: Yes Status: Acute Hospital Course: This is a very pleasant 68 year old female who presented to the hospital post fall at home and sustained a right femoral shaft fracture The patient was cleared by medicine for surgery. The patient underwent a retrograde intramedullary nail fixation on 04/07/[address] Fox. The procedure was performed without complication or sequelae. The patient is doing well postoperatively. Labs and vital signs are stable on the day of discharge. On the day of discharge the patient's incisions are healing well. There is minimal erythema. There is no drainage noted at this time. There is minimal soft tissue swelling to the thigh and knee. The patient has full foot and ankle motion without difficulty or pain. Calf is soft and nontender Neurovascular status to the right lower extremity is intact. The patient is discharged to home with home care in good condition. Pertinent Studies: Laboratory Tests 04/08/19 06:39 WBC 7.6 RBC 3.05 L Hgb 9.2 L D Hct 28.2 L Patient Condition at Discharge: Stable Plan - Discharge Summary New Discharge Prescriptions: New Aspirin 325 mg PO BID #60 tab Docusate [Colace] 100 mg PO BID #60 capsule HYDROcodone/APAP 10-325MG [[place] 10-325] 1 tab PO Q4-6H PRN #40 tab PRN Reason: Pain No Action Gabapentin [Neurontin] 300 mg PO DAILY ALPRAZolam [Xanax] 0.25 mg PO DAILY PRN PRN Reason: Anxiety Oxybutynin Chloride [Oxybutynin Chloride ER] 15 mg PO DAILY Meloxicam 7.5 mg PO BID Fexofenadine HCl [Stefania Allergy] 180 mg PO DAILY Citalopram Hydrobromide [Citalopram HBr] 40 mg PO DAILY Olmesartan Medoxomil [Benicar] 20 mg PO DAILY Cyanocobalamin (Vitamin B-12) [Vitamin B-12] 1,000 mcg PO DAILY Alendronate Sodium [Fosamax] 70 mg PO SA Discharge Medication List ALPRAZolam [Xanax] 0.25 mg PO DAILY PRN 04/06/19 [History] Alendronate Sodium [Fosamax] 70 mg PO SA 04/06/19 [History] Citalopram Hydrobromide [Citalopram HBr] 40 mg PO DAILY 04/06/19 [History] Cyanocobalamin (Vitamin B-12) [Vitamin B-12] 1,000 mcg PO DAILY 04/06/19 [History] Fexofenadine HCl [Stefania Allergy] 180 mg PO DAILY 04/06/19 [History] Gabapentin [Neurontin] 300 mg PO DAILY 04/06/19 [History] Meloxicam 7.5 mg PO BID 04/06/19 [History] Olmesartan Medoxomil [Benicar] 20 mg PO DAILY 04/06/19 [History] Oxybutynin Chloride [Oxybutynin Chloride ER] 15 mg PO DAILY 04/06/19 [History] Aspirin 325 mg PO BID #60 tab 04/09/19 [Rx] Docusate [Colace] 100 mg PO BID #60 capsule 04/09/19 [Rx] HYDROcodone/APAP 10-325MG [[place] 10-325] 1 tab PO Q4-6H PRN #40 tab 04/09/19 [Rx] Follow up Appointment(s)/Referral(s): [facility], [NON-STAFF] - As Needed Pricilla Gomez MD [Primary Care Provider] - 1-2 days Les Fox MD [STAFF PHYSICIAN] - 10 Days Activity/Diet/Wound Care/Special Instructions: Keep wound clean and dry Toe touch weightbearing right leg May shower in 3 days if no bleeding Take meds as directed Follow-up with Dr. Fox in office Call [facility] with any questions or concerns, . Discharge Disposition: HOME WITH HOME HEALTH SERVICES
[2019-04-09] MEDS ORDERED: MULTIVITAMINS, THERA 1 EACH TAB PO SCH (12:00)
--- NOTE | 2019-04-09 12:06 | XR ---
EXAMINATION TYPE: XR chest 2V DATE OF EXAM: 04/09/2019 COMPARISON: 04/06/2019 INDICATION: Pneumonia TECHNIQUE: Frontal and lateral views of the chest are obtained. FINDINGS: The heart size is normal. The pulmonary vasculature is normal. There is a small pleural effusion posteriorly likely on the left base. This is an interval finding. S uspicious consolidation is not identified. IMPRESSION: 1. Small posterior left pleural effusion
[2019-04-09] MEDS: LACTATED RINGERS 1,000 ML IV SCH (12:59)
--- NOTE | 2019-04-09 16:04 | P.PN ---
Subjective Patient had closed reduction and fixation of the right femoral fracture. Patient is clinically doing well pain is better controlled patient doesn't have a surgical drain patient blood pressure is low normal will continue to hold on antidepressant medications. Patient did not move the bowel or pass any gas 04/09/2019 patient is feeling well is being discharged today patient had a low-grade fever because of which obtained a septic workup chest x-ray showed mildly left pleural effusion although patient clinically doesn't have pneumonia patient years being obtained results of which are pending patient doesn't have any dysuria few is within normal limits patient can be discharged blood cultures were obtained . Anticoagulation can resume her antidepressant medications Constitutional: Denied any fatigue denied any fever. Cardio vascular: denied any chest pain, palpitations Gastrointestinal denied any nausea vomiting Pulmonary: Denied any shortness of breath cough Neurologic denied any new focal deficits All inpatient medications were reviewed and appropriate changes in these medications as dictated in the interval history and assessment and plan. Objective - Vital Signs Vital signs: Vital Signs Temp 98.7 F 04/09/19 11:20 Pulse 76 04/09/19 08:30 Resp 14 04/09/19 08:30 BP 127/68 04/09/19 07:40 Pulse Ox 94 L 04/09/19 00:52 Intake & Output 04/08/19 04/09/19 04/09/19 18:59 06:59 18:59 Output Total 600 Balance -600 Output: Urine 600 Uretheral (Fatima) 300 Other: Voiding Method Indwelling Catheter Indwelling Catheter # Voids 1 - Exam PHYSICAL EXAMINATION: GENERAL: The patient is alert and oriented x3, not in any acute distress. Well developed, well nourished. HEENT: Pupils are round and equally reacting to light. EOMI. No scleral icterus. No conjunctival pallor. Normocephalic, atraumatic. No pharyngeal erythema. No thyromegaly. CARDIOVASCULAR: S1 and S2 present. No murmurs, rubs, or gallops. PULMONARY: Chest is clear to auscultation, no wheezing or crackles. ABDOMEN: Soft, nontender, nondistended, normoactive bowel sounds. No palpable organomegaly. MUSCULOSKELETAL: Deferred to orthopedic surgery EXTREMITIES: No cyanosis, clubbing, or pedal edema. NEUROLOGICAL: Gross neurological examination did not reveal any focal deficits. SKIN: No rashes. - Labs CBC & Chem 7: 04/08/19 06:39 04/06/19 16:47 Assessment and Plan Plan: -The right femoral fracture or supposed close reduction and internal fixation pain is better controlled due to prophylaxis and pain management as per primary service -Fever septic workup as mentioned above -Hypertension anticoagulation can resume her antidepressant medications from tomorrow -Depression will be resumed on the citalopram -Peripheral neuropathy for which patient is on gabapentin, which is being continued -Urinary incontinence patient is on oxybutynin which will be continued -DVT prophylaxis pain management as per primary service
[2019-04-09 16:10] VITALS: BP 124/87; PULSE 85; RESP 12; TEMP 98
[2019-04-09 16:30] LABS: Appearance,Urine Cloudy (Clear); Bacteria,Urine Occasional /hpf; Bilirubin,Urine Negative (Negative); Blood,Urine Negative (Negative); Color,Urine Light Yellow; Glucose,Urine (UA) Negative (Negative); Ketones,Urine Negative (Negative); Leukocyte Esterase,Urine Large (Negative); Mucus,Urine Rare /hpf; Nitrite,Urine Negative (Negative); PH, Urine 6.5 (5.0-8.0); Protein,Urine Negative (Negative); RBC,Urine 1 /hpf (0-5); Specific Gravity,Urine 1.006 (1.001-1.035); Urobilinogen,Urine <2.0 mg/dL (<2.0); WBC,Urine 39 /hpf (0-5)
--- NOTE | 2019-04-14 15:34 | CDI ---
Documentation Clarification Form Date: 04/14/19 From: Sidra Hudson Phone: If you have a question about this query, please contact Jina Sanders [employer] at [phone] between 8am and 5pm. Admit Date: 04/06/19 Discharge Date:04/09/19 Patient Name: Nichole Keating Visit Number: [id number] ATTENTION: The Clinical Documentation Specialists (CDI) and [facility] Coding Staff appreciate your assistance in clarifying documentation. Please respond to the clarification below the line at the bottom and electronically sign. The CDI & [facility] Coding staff will review the response and follow-up if needed. Please note: Queries are made part of the Legal Health Record. If you have any questions, please contact the author of this message via ITS. Dear Dr. Fox Patient has been diagnosed with a fracture of the midshaft of the right femur. History/Risk Factors: Osteopenia, fall at home Clinical Indications: Pain, deformed thigh X-Ray Results: Displaced mid shaft fracture of the right femur Treatment: Intramedullary nail fixation In your professional opinion, please specify the following: Etiology of fracture: Traumatic Pathological (specify cause): Neoplastic disease Osteopenia Other (please specify): Unable to determine Etiology of fracture was Traumatic MTDD
--- NOTE | 2019-04-15 12:11 | ECHOF ---
Referral Reason:surgical clearance MEASUREMENTS -------- HEIGHT: 165.1 cm WEIGHT: 62.6 kg BP: RVIDd: 2.9 cm (< 3.3) IVSd: 1.2 cm (0.6 - 1.1) LVIDd: 2.9 cm (3.9 - 5.3) LVPWd: 1.6 cm (0.6 - 1.1) IVSs: 1.4 cm LVIDs: 1.7 cm LVPWs: 1.6 cm LAESV Index (A-L): 23.42 ml/m Ao Diam: 2.4 cm (2.0 - 3.7) AV Cusp: 1.8 cm (1.5 - 2.6) LA Diam: 3.1 cm (2.7 - 3.8) MV EXCURSION: 14.523 mm (> 18.000) MV EF SLOPE: 51 mm/s (70 - 150) EPSS: 0.4 cm MV E Lance: 0.93 m/s MV DecT: 198 ms MV A Lance: 0.98 m/s MV E/A Ratio: 0.95 AR PHT: 468 ms RAP: 5.00 mmHg RVSP: 41.81 mmHg FINDINGS -------- Sinus rhythm. This was a technically good study. The left ventricular size is normal. There is mild concentric left ventricular hypertrophy. Overa ll left ventricular systolic function is normal with, an EF between 55 - 60 %. The diastolic fillin g pattern is normal for the age of the patient 14.39. The right ventricle is normal in size. Normal LA size by volume 22+/-6 ml/m2. The right atrial size is normal. Interatrial and interventricular septum intact. The aortic valve is trileaflet and appears structurally normal. There is mild aortic valve sclerosi s. There is mild aortic regurgitation. There is trace mitral regurgitation. Mild tricuspid regurgitation present. There is mild pulmonary hypertension. The right ventricular systolic pressure, as measured by Doppler, is 41.81mmHg. The aortic root size is normal. IVC Not well visulized. There is a trivial pericardial effusion present. CONCLUSIONS -------- 1. Sinus rhythm. 2. This was a technically good study. 3. The left ventricular size is normal. 4. There is mild concentric left ventricular hypertrophy. 5. Overall left ventricular systolic function is normal with, an EF between 55 - 60 %. 6. The diastolic filling pattern is normal for the age of the patient 14.39 7. The right ventricle is normal in size. 8. Normal LA size by volume 22+/-6 ml/m2. 9. The right atrial size is normal. 10. Interatrial and interventricular septum intact. 11. The aortic valve is trileaflet and appears structurally normal. 12. There is mild aortic valve sclerosis. 13. There is mild aortic regurgitation. 14. There is trace mitral regurgitation. 15. Mild tricuspid regurgitation present. 16. There is mild pulmonary hypertension. 17. The right ventricular systolic pressure, as measured by Doppler, is 41.81mmHg. 18. The aortic root size is normal. 19. IVC Not well visulized. 20. There is a trivial pericardial effusion present. [employer] DEAN: Nirali Way RDCS
== END 2019-04-09 18:00 | disposition home health service (06) | DRG 482 ==
LOC: EC 16:21 → 4SSUR 19:51
PROVIDERS: ADMIT Orthopaedic Surgery Sports Medicine; ATTEND Orthopaedic Surgery Sports Medicine
PROC: 0QS836Z Reposition Right Femoral Shaft with Intramedullary Internal Fixation Device, Percutaneous Approach (ICD-10-PCS; principal; 2019-04-07 10:10)
DX: S72.301A Unspecified fracture of shaft of right femur, initial encounter for closed fracture (principal); F32.9 Major depressive disorder, single episode, unspecified; I10 Essential (primary) hypertension; M85.80 Other specified disorders of bone density and structure, unspecified site; R50.9 Fever, unspecified; G62.9 Polyneuropathy, unspecified; R32 Unspecified urinary incontinence; Z79.1 Long term (current) use of non-steroidal anti-inflammatories (NSAID); Z79.83 Long term (current) use of bisphosphonates; Z79.899 Other long term (current) drug therapy; Z88.0 Allergy status to penicillin; W01.0XXA Fall on same level from slipping, tripping and stumbling without subsequent striking against object, initial encounter; Y92.009 Unspecified place in unspecified non-institutional (private) residence as the place of occurrence of the external cause
CPT/HCPCS: 27502; 36415; 71045; 71046; 73502; 80053; 81001; 81003; 82550; 83605; 83735; 84100; 84484; 85025; 85610; 85730; 87040; 87077; 87086; 87186; 93005; 93306; 96361; 96374; 96376; 99285

== ENCOUNTER 2020-02-28 12:01 | Inpatient (IN) | payer MEDICARE ==
[2020-02-28] MEDS ORDERED: SODIUM CHLORIDE 0.9% 1,000 ML IV STA (12:36)
[2020-02-28 13:00] LABS: Basophils # (A) 0.1 k/uL (0-0.2); Basophils % (A) 1 %; Eosinophils % (A) 0 %; HGB 14.3 gm/dL (11.4-16.0); Lymphocytes # (A) 0.4 k/uL (1.0-4.8); Lymphocytes % (A) 3 %; MCHC 33.2 g/dL (31.0-37.0); MCV 93.1 fL (80.0-100.0); Mean Platelet Volume 7.6; Monocytes # (A) 0.6 k/uL (0-1.0); Monocytes % (A) 4 %; Neutrophils # (A) 15.2 k/uL (1.3-7.7); Neutrophils % (A) 93 %; Platelet Count 220 k/uL (150-450); RBC 4.61 m/uL (3.80-5.40); RDW 12.9 % (11.5-15.5); WBC 16.4 k/uL (3.8-10.6)
[2020-02-28] MEDS ORDERED: ONDANSETRON 4 MG/2 ML VIAL IVP STA (13:09)
[2020-02-28] MEDS ORDERED: MORPHINE SULFATE 4 MG/ML SYRINGE IVP STA (13:09)
[2020-02-28 13:11] LABS: Albumin 4.3 g/dL (3.5-5.0); Calcium 9.3 mg/dL (8.4-10.2); Potassium 4.2 mmol/L (3.5-5.1); Total Bilirubin 0.9 mg/dL (0.2-1.3); Total Protein 7.5 g/dL (6.3-8.2)
[2020-02-28] MEDS ORDERED: SODIUM CHLORIDE 0.9% 500 ML 500 ML IV ONE (13:22)
[2020-02-28 13:29] LABS: Appearance,Urine Cloudy (Clear); Bacteria,Urine Moderate /hpf; Bilirubin,Urine Negative (Negative); Blood,Urine Moderate (Negative); Color,Urine Yellow; Glucose,Urine (UA) Negative (Negative); Ketones,Urine Negative (Negative); Leukocyte Esterase,Urine Large (Negative); Mucus,Urine Rare /hpf; Nitrite,Urine Positive (Negative); Protein,Urine Trace (Negative); RBC,Urine 19 /hpf (0-5); Specific Gravity,Urine 1.019 (1.001-1.035); Urobilinogen,Urine <2.0 mg/dL (<2.0); WBC,Urine >182 /hpf (0-5)
--- NOTE | 2020-02-28 13:38 | ED ---
Abdominal Pain HPI - General Source: patient Mode of arrival: wheelchair Limitations: no limitations <Mercedes Rodrigues - Last Filed: 02/28/20 13:52> <Wilber Wade - Last Filed: 02/28/20 14:50> - General Chief Complaint: Abdominal Pain Stated Complaint: abd pain Time Seen by Provider: 02/28/20 12:23 - History of Present Illness Initial Comments: 69-year-old female patient presents to the emergency department today for evaluation of right-sided abdominal pain and right flank pain. Patient states the pain started this morning and has been constant since. States she has had some nausea and has had dry heaves. Denies any constipation or diarrhea. Denies history of abdominal surgery. She denies any chest pain or shortness of breath. Denies taking any medication for her symptoms. She denies any hematuria, dysuria, urinary frequency, urinary urgency. Patient denies any recent rash, fever, chills, cough, shortness of breath, chest pain, numbness, tingling, dizziness, weakness, headache, visual changes, or any other complaints. (Mercedes Rodrigues) - Related Data Home Medications Medication Instructions Recorded Confirmed ALPRAZolam [Xanax] 0.25 mg PO DAILY PRN 04/06/19 04/06/19 Alendronate Sodium [Fosamax] 70 mg PO SA 04/06/19 04/06/19 Citalopram Hydrobromide 40 mg PO DAILY 04/06/19 04/06/19 [Citalopram HBr] Cyanocobalamin (Vitamin B-12) 1,000 mcg PO DAILY 04/06/19 04/06/19 [Vitamin B-12] Fexofenadine HCl [Stefania Allergy] 180 mg PO DAILY 04/06/19 04/06/19 Gabapentin [Neurontin] 300 mg PO DAILY 04/06/19 04/06/19 Meloxicam 7.5 mg PO BID 04/06/19 04/06/19 Olmesartan Medoxomil [Benicar] 20 mg PO DAILY 04/06/19 04/06/19 Oxybutynin Chloride [Oxybutynin 15 mg PO DAILY 04/06/19 04/06/19 Chloride ER] Previous Rx's Medication Instructions Recorded Aspirin 325 mg PO BID #60 tab 01/10/20 Docusate [Colace] 100 mg PO BID #60 capsule 04/09/19 HYDROcodone/APAP 10-325MG [Toney 1 tab PO Q4-6H PRN #40 tab 04/09/19 10-325] Allergies Allergy/AdvReac Type Severity Reaction Status Date / Time Penicillins Allergy Swelling Verified 02/28/20 12:18 Review of Systems ROS Other: All systems not noted in ROS Statement are negative. <Mercedes Rodrigues - Last Filed: 02/28/20 13:52> ROS Other: All systems not noted in ROS Statement are negative. <Wilber Wade - Last Filed: 02/28/20 14:50> ROS Statement: Those systems with pertinent positive or pertinent negative responses have been documented in the HPI. Past Medical History Past Medical History: Hypertension History of Any Multi-Drug Resistant Organisms: None Reported Past Surgical History: Back Surgery, Orthopedic Surgery Past Psychological History: No Psychological Hx Reported Past Alcohol Use History: Occasional Past Drug Use History: None Reported <Mercedes Rodrigues - Last Filed: 02/28/20 13:52> General Exam Limitations: no limitations General appearance: alert, in no apparent distress, other (This is a well- developed, well-nourished adult female patient in no acute distress. Vital signs upon presentation are temperature 98.4F, pulse 92, respirations 16, blood pressure 126/76, pulse ox 99% on room air.) Eye exam: Present: normal appearance, PERRL, EOMI. Absent: scleral icterus, conjunctival injection, periorbital swelling ENT exam: Present: normal exam, normal oropharynx, mucous membranes moist Respiratory exam: Present: normal lung sounds bilaterally. Absent: respiratory distress, wheezes, rales, rhonchi, stridor Cardiovascular Exam: Present: regular rate, normal rhythm, normal heart sounds. Absent: systolic murmur, diastolic murmur, rubs, gallop, clicks GI/Abdominal exam: Present: soft, tenderness (Right upper and right lower quadrant tenderness), normal bowel sounds. Absent: distended, guarding, rebound, rigid Back exam: Present: normal inspection, CVA tenderness (R). Absent: CVA tenderness (L) Neurological exam: Present: alert, oriented X3, CN II-XII intact Psychiatric exam: Present: normal affect, normal mood Skin exam: Present: warm, dry, intact, normal color. Absent: rash <Mercedes Rodrigues - Last Filed: 02/28/20 13:52> Course Vital Signs 02/28/20 02/28/20 12:15 13:40 Temperature 98.4 F Pulse Rate 92 85 Respiratory 16 18 Rate Blood Pressure 126/76 148/75 O2 Sat by Pulse 99 95 Oximetry Medical Decision Making - Lab Data Result diagrams: 02/28/20 12:42 02/28/20 12:42 <Mercedes Rodrigues - Last Filed: 02/28/20 13:52> - Lab Data Result diagrams: 02/28/20 12:42 02/28/20 12:42 - Radiology Data Radiology results: image reviewed (Computed tomography scan abdomen pelvis does show 1.3 x 8.6 cm obstructing right renal pelvic stone with moderate to marked right hydronephrosis and perinephric fluid) <Wilber Wade - Last Filed: 02/28/20 14:50> - Medical Decision Making Patient reexamined and reevaluated by myself, Dr. Wade. I do agree with PAs findings. This includes diagnostic interpretation and treatment plan. Patient resting comfortably in bed at this time. Patient updated on results and plan. Case was discussed with Dr. Coleman who will come evaluate patient who will likely need stent. Dr. Bernstein did come see patient. He does agree with Levaquin Culture and lactic acid and IV antibiotics HAVE BEEN ORDERED. (Wilber Wade) - Lab Data Lab Results 02/28/20 02/28/20 02/28/20 Range/Units 12:42 12:42 12:42 WBC 16.4 H (3.8-10.6) k/uL RBC 4.61 (3.80-5.40) m/uL Hgb 14.3 (11.4-16.0) gm/dL Hct 43.0 (34.0-46.0) % MCV 93.1 (80.0-100.0) fL MCH 31.0 (25.0-35.0) pg MCHC 33.2 (31.0-37.0) g/dL RDW 12.9 (11.5-15.5) % Plt Count 220 (150-450) k/uL MPV 7.6 Neutrophils % 93 % Lymphocytes % 3 % Monocytes % 4 % Eosinophils % 0 % Basophils % 1 % Neutrophils # 15.2 H (1.3-7.7) k/uL Lymphocytes # 0.4 L (1.0-4.8) k/uL Monocytes # 0.6 (0-1.0) k/uL Eosinophils # 0.0 (0-0.7) k/uL Basophils # 0.1 (0-0.2) k/uL Sodium 134 L (137-145) mmol/L Potassium 4.2 (3.5-5.1) mmol/L Chloride 99 (98-107) mmol/L Carbon Dioxide 26 (22-30) mmol/L Anion Gap 9 mmol/L BUN 15 (7-17) mg/dL Creatinine 1.16 H (0.52-1.04) mg/dL Est GFR (CKD-EPI)AfAm 55 (>60 ml/min/1.73 sqM) Est GFR (CKD-EPI)NonAf 48 (>60 ml/min/1.73 sqM) Glucose 149 H (74-99) mg/dL Plasma Lactic Acid Matti (0.7-2.0) mmol/L Calcium 9.3 (8.4-10.2) mg/dL Total Bilirubin 0.9 (0.2-1.3) mg/dL AST 31 (14-36) U/L ALT 23 (4-34) U/L Alkaline Phosphatase 44 (38-126) U/L Total Protein 7.5 (6.3-8.2) g/dL Albumin 4.3 (3.5-5.0) g/dL Amylase 50 (30-110) U/L Lipase 40 (23-300) U/L Urine Color Yellow Urine Appearance Cloudy H (Clear) Urine pH 7.0 (5.0-8.0) Ur Specific [place] 1.019 (1.001-1.035) Urine Protein Trace H (Negative) Urine Glucose (UA) Negative (Negative) Urine Ketones Negative (Negative) Urine Blood Moderate H (Negative) Urine Nitrite Positive H (Negative) Urine Bilirubin Negative (Negative) Urine Urobilinogen <2.0 (<2.0) mg/dL Ur Leukocyte Esterase Large H (Negative) Urine RBC 19 H (0-5) /hpf Urine WBC >182 H (0-5) /hpf Urine WBC Clumps Few H (None) /hpf Urine Bacteria Moderate H (None) /hpf Urine Mucus Rare H (None) /hpf 02/28/20 Range/Units 12:42 WBC (3.8-10.6) k/uL RBC (3.80-5.40) m/uL Hgb (11.4-16.0) gm/dL Hct (34.0-46.0) % MCV (80.0-100.0) fL MCH (25.0-35.0) pg MCHC (31.0-37.0) g/dL RDW (11.5-15.5) % Plt Count (150-450) k/uL MPV Neutrophils % % Lymphocytes % % Monocytes % % Eosinophils % % Basophils % % Neutrophils # (1.3-7.7) k/uL Lymphocytes # (1.0-4.8) k/uL Monocytes # (0-1.0) k/uL Eosinophils # (0-0.7) k/uL Basophils # (0-0.2) k/uL Sodium (137-145) mmol/L Potassium (3.5-5.1) mmol/L Chloride (98-107) mmol/L Carbon Dioxide (22-30) mmol/L Anion Gap mmol/L BUN (7-17) mg/dL Creatinine (0.52-1.04) mg/dL Est GFR (CKD-EPI)AfAm (>60 ml/min/1.73 sqM) Est GFR (CKD-EPI)NonAf (>60 ml/min/1.73 sqM) Glucose (74-99) mg/dL Plasma Lactic Acid Matti 3.6 H* (0.7-2.0) mmol/L Calcium (8.4-10.2) mg/dL Total Bilirubin (0.2-1.3) mg/dL AST (14-36) U/L ALT (4-34) U/L Alkaline Phosphatase (38-126) U/L Total Protein (6.3-8.2) g/dL Albumin (3.5-5.0) g/dL Amylase (30-110) U/L Lipase (23-300) U/L Urine Color Urine Appearance (Clear) Urine pH (5.0-8.0) Ur Specific [place] (1.001-1.035) Urine Protein (Negative) Urine Glucose (UA) (Negative) Urine Ketones (Negative) Urine Blood (Negative) Urine Nitrite (Negative) Urine Bilirubin (Negative) Urine Urobilinogen (<2.0) mg/dL Ur Leukocyte Esterase (Negative) Urine RBC (0-5) /hpf Urine WBC (0-5) /hpf Urine WBC Clumps (None) /hpf Urine Bacteria (None) /hpf Urine Mucus (None) /hpf Disposition <Mercedes Rodrigues - Last Filed: 02/28/20 13:52> Is patient prescribed a controlled substance at d/c from ED?: No Decision Time: 14:50 <Wilber Wade - Last Filed: 02/28/20 14:50> Clinical Impression: Ureterolithiasis, Obstructive uropathy Disposition: ADMITTED IP TO THIS HOSP Referrals: Pricilla Gomez MD [Primary Care Provider] - 1-2 days
--- NOTE | 2020-02-28 14:17 | CT ---
EXAMINATION TYPE: CT abdomen pelvis wo con DATE OF EXAM: 02/28/2020 COMPARISON: None INDICATION: Right sided flank and RLQ pain. DLP: 480.9 mGycm, Automated exposure control for dose reduction was used. CONTRAST: 0 mL of Isovue 300. Study performed without Oral Contrast TECHNIQUE: Axial images were obtained from above the diaphragm to the pubic rami in the axial plane a t 5 mm thick sections. Reconstructed images are reviewed on the computer in the coronal plane. FINDINGS: Limited CT sections are obtained the lung bases. The lung bases are clear. Small hiatal hernia CT ABDOMEN: Liver: Normal Spleen: Normal Pancreas: Normal Adrenal glands: The adrenal glands are normal. Gallbladder: Normal Kidneys: No masses are evident. No left hydronephrosis is evident. No cysts are present. There is a 1.3 x 0.6 similar calcification at the right renal pelvis. Moderately prominent hydronephrosis is pre sent. Perinephric stranding and fluid is present. Aorta: Vascular calcification is within the aorta. Inferior vena cava: Normal. CT PELVIS: Loops of bowel within the abdomen and pelvis are normal. There are loops of bowel which are incom pletely distended or lack oral contrast limiting their evaluation. Appendix: Normal as visualized. Tiny appendicolith may be present. No dilatation of the appendix is e vident Urinary bladder: Normal. Genitourinary structures: Uterus is retroverted. There is a degenerative fibroid calcification presen t. Osseous structures: No suspicious lytic or sclerotic lesions. Scoliosis is present with a convexity t o the right IMPRESSIONS: 1. 1.3 x 0.6 cm obstructing right renal pelvic stone with moderate to marked right hydronephrosis an d perinephric fluid.
[2020-02-28] MEDS ORDERED: LEVOFLOXACIN 750MG-D5W PMX 750 MG in DEXTROSE/WATER 1 150ML.BAG IVPB STA (14:49)
[2020-02-28] MEDS ORDERED: MORPHINE SULFATE 4 MG/ML SYRINGE IV PRN (14:50)
[2020-02-28] MEDS ORDERED: NALOXONE 0.4 MG/ML 1 ML VIAL IV PRN (14:50)
--- NOTE | 2020-02-28 15:21 | P.GSHP ---
History of Present Illness H&P Date: 02/28/20 Chief Complaint: Right flank pain and chills The patient is a 69-year-old female who developed right flank pain associated with chills yesterday evening. She developed nausea and retching last night. Her pain worsened and was rated as bad as a 9 out of 10. She noted no change in her urine color or urine frequency. She had no fever. She presented to the emergency room at approximately noon and has been afebrile. Her white blood count was 16,400. Lactic acid was 3.6. BUN/creatinine were 15/1.16. Urinalysis suggested a urinary tract infection. Noncontrast computed tomography scan of the abdomen and pelvis showed moderate right hydronephrosis with perinephric stranding. A 6 x 13 mm obstructive calculus was noted at the right ureteral pelvic junction. There appeared to be some gas adjacent to the calculus. The patient has been treated with analgesics and is more comfortable. She is admitted for the purpose of cystoscopy with placement of a right double- J catheter to decompress the right kidney and allow better antibiotic treatment of her possible acute pyelonephritis. Patient has no previous history of urolithiasis. She says she may have had a ur inary tract infection in the past but this has been years ago. She has not been on antibiotics in over 1 year. - Constitutional Constitutional: Reports chills, Reports malaise, Denies fever - EENT Ears, nose, mouth and throat: Reports vertigo - Cardiovascular Cardiovascular: Denies chest pain, Denies edema, Denies palpitations, Denies shortness of breath - Respiratory Respiratory: Denies cough, Denies wheezing - Gastrointestinal Gastrointestinal: Reports abdominal pain (Right flank and right upper quadrant), Denies constipation, Denies diarrhea - Genitourinary (Female) Genitourinary: Reports as per HPI Past Medical History Past Medical History: Hypertension History of Any Multi-Drug Resistant Organisms: None Reported Past Surgical History: Back Surgery (Lumbosacral spine), Orthopedic Surgery (ORIF right femur fracture 03/2019. Fracture of both heels) Past Psychological History: No Psychological Hx Reported Past Alcohol Use History: Occasional Past Drug Use History: None Reported Medications and Allergies Home Medications Medication Instructions Recorded Confirmed Type ALPRAZolam [Xanax] 0.25 mg PO HS 04/06/19 02/28/20 History Alendronate Sodium [Fosamax] 70 mg PO SA 04/06/19 02/28/20 History Citalopram Hydrobromide 40 mg PO DAILY 04/06/19 02/28/20 History [Citalopram HBr] Fexofenadine HCl [Stefania Allergy] 180 mg PO DAILY 04/06/19 02/28/20 History Gabapentin [Neurontin] 300 mg PO HS 04/06/19 02/28/20 History Meloxicam 7.5 mg PO DAILY 04/06/19 02/28/20 History Olmesartan Medoxomil [Benicar] 20 mg PO DAILY 04/06/19 02/28/20 History Oxybutynin Chloride [Oxybutynin 15 mg PO DAILY 04/06/19 02/28/20 History Chloride ER] Cholecalciferol [Vitamin D3 (25 1,000 unit PO DAILY 02/28/20 02/28/20 History Mcg = 1000 Iu)] [employer] 1 tab PO DAILY 02/28/20 02/28/20 History Allergies Allergy/AdvReac Type Severity Reaction Status Date / Time Penicillins Allergy Swelling Verified 02/28/20 14:50 Surgical - Exam Vital Signs Temp Pulse Resp BP Pulse Ox 98.4 F 92 16 126/76 99 02/28/20 12:15 02/28/20 12:15 02/28/20 12:15 02/28/20 12:15 02/28/20 12:15 - General well developed, well nourished, moderate distress - ENT no hearing loss - Neck no masses, no bruits, no lymphadectomy - Respiratory normal expansion, normal respiratory effort, clear to auscultation - Cardiovascular Rhythm: regular Abnormal Heart Sounds: no systolic murmur, no diastolic murmur - Abdomen Abdomen: tender (Right flank and right upper quadrant), no organomegaly, no distended Results - Labs 02/28/20 12:42 02/28/20 12:42 Abnormal Lab Results - Last 24 Hours (Table) 02/28/20 02/28/20 02/28/20 Range/Units 12:42 12:42 12:42 WBC 16.4 H (3.8-10.6) k/uL Neutrophils # 15.2 H (1.3-7.7) k/uL Lymphocytes # 0.4 L (1.0-4.8) k/uL Sodium 134 L (137-145) mmol/L Creatinine 1.16 H (0.52-1.04) mg/dL Glucose 149 H (74-99) mg/dL Plasma Lactic Acid Matti (0.7-2.0) mmol/L Urine Appearance Cloudy H (Clear) Urine Protein Trace H (Negative) Urine Blood Moderate H (Negative) Urine Nitrite Positive H (Negative) Ur Leukocyte Esterase Large H (Negative) Urine RBC 19 H (0-5) /hpf Urine WBC >182 H (0-5) /hpf Urine WBC Clumps Few H (None) /hpf Urine Bacteria Moderate H (None) /hpf Urine Mucus Rare H (None) /hpf 02/28/20 Range/Units 12:42 WBC (3.8-10.6) k/uL Neutrophils # (1.3-7.7) k/uL Lymphocytes # (1.0-4.8) k/uL Sodium (137-145) mmol/L Creatinine (0.52-1.04) mg/dL Glucose (74-99) mg/dL Plasma Lactic Acid Matti 3.6 H* (0.7-2.0) mmol/L Urine Appearance (Clear) Urine Protein (Negative) Urine Blood (Negative) Urine Nitrite (Negative) Ur Leukocyte Esterase (Negative) Urine RBC (0-5) /hpf Urine WBC (0-5) /hpf Urine WBC Clumps (None) /hpf Urine Bacteria (None) /hpf Urine Mucus (None) /hpf Diabetes panel 02/28/20 Range/Units 12:42 Sodium 134 L (137-145) mmol/L Potassium 4.2 (3.5-5.1) mmol/L Chloride 99 (98-107) mmol/L Carbon Dioxide 26 (22-30) mmol/L BUN 15 (7-17) mg/dL Creatinine 1.16 H (0.52-1.04) mg/dL Glucose 149 H (74-99) mg/dL Calcium 9.3 (8.4-10.2) mg/dL AST 31 (14-36) U/L ALT 23 (4-34) U/L Alkaline Phosphatase 44 (38-126) U/L Total Protein 7.5 (6.3-8.2) g/dL Albumin 4.3 (3.5-5.0) g/dL Calcium panel 02/28/20 Range/Units 12:42 Calcium 9.3 (8.4-10.2) mg/dL Albumin 4.3 (3.5-5.0) g/dL Pituitary panel 02/28/20 Range/Units 12:42 Sodium 134 L (137-145) mmol/L Potassium 4.2 (3.5-5.1) mmol/L Chloride 99 (98-107) mmol/L Carbon Dioxide 26 (22-30) mmol/L BUN 15 (7-17) mg/dL Creatinine 1.16 H (0.52-1.04) mg/dL Glucose 149 H (74-99) mg/dL Calcium 9.3 (8.4-10.2) mg/dL Adrenal panel 02/28/20 Range/Units 12:42 Sodium 134 L (137-145) mmol/L Potassium 4.2 (3.5-5.1) mmol/L Chloride 99 (98-107) mmol/L Carbon Dioxide 26 (22-30) mmol/L BUN 15 (7-17) mg/dL Creatinine 1.16 H (0.52-1.04) mg/dL Glucose 149 H (74-99) mg/dL Calcium 9.3 (8.4-10.2) mg/dL Total Bilirubin 0.9 (0.2-1.3) mg/dL AST 31 (14-36) U/L ALT 23 (4-34) U/L Alkaline Phosphatase 44 (38-126) U/L Total Protein 7.5 (6.3-8.2) g/dL Albumin 4.3 (3.5-5.0) g/dL - Imaging CT scan - abdomen: image reviewed Assessment and Plan (1) Hydronephrosis with renal and ureteral calculous obstruction Narrative/Plan: The patient has acute right hydronephrosis secondary to a 6 x 13 mm calculus at the right ureteropelvic junction. There appears to be gas adjacent to the calculus and the patient has evidence of an elevated lactic acid and a urinary tract infection which could represent an underlying acute pyelonephritis. Cystoscopy with placement of a right double-J catheter will be performed later today to allow better drainage of the right kidney. The patient has been started on Levaquin. A culture from the right renal pelvis will be obtained at the time of the surgery. Current Visit: Yes Status: Acute Code(s): N13.2 - HYDRONEPHROSIS WITH RENAL AND URETERAL CALCULOUS OBSTRUCTION SNOMED Code(s): 282980514
[2020-02-28] MEDS ORDERED: IV FLUID CONTINUATION 1,000 ML IV ONE (15:39)
[2020-02-28] MEDS ORDERED: ePHEDrine SULFATE/0.9% NACL/PF 50 MG/5 ML SYRINGE IV ONE (16:05)
[2020-02-28] MEDS ORDERED: PROPOFOL 10 MG/ML 20 ML VIAL IV ONE (16:05)
[2020-02-28] MEDS ORDERED: MIDAZOLAM 2 MG/2 ML VIAL ONE (16:05)
[2020-02-28] MEDS ORDERED: LIDOCAINE 1% INJ 10MG/ML (20 ML MDV) ONE (16:05)
[2020-02-28] MEDS ORDERED: fentaNYL (PF) 50 MCG/ML 2 ML AMP ONE (16:05)
[2020-02-28] MEDS ORDERED: SODIUM CHLORIDE 0.9% 1,000 ML IV ONE (16:10)
--- NOTE | 2020-02-28 16:50 | P.OP ---
Date of Procedure: 02/28/20 Preoperative Diagnosis: Right hydronephrosis secondary to right renal calculus Postoperative Diagnosis: Right hydronephrosis secondary to right renal calculus Procedure(s) Performed: Cystoscopy with placement of right double-J catheter Anesthesia: LEOPOLDO Surgeon: Chuy Coleman Pathology: none sent Condition: stable Disposition: PACU Indications for Procedure: The patient is a 69-year-old female admitted through the emergency room earlier today for evaluation of right hydronephrosis secondary to an obstructive calculus at the right ureteral pelvic junction. The patient had evidence of leukocytosis and an elevated lactate acid coupled with a urinary tract infection. Cystoscopy with placement of a right double-J catheter is planned due to the concern that the patient may have acute pyelonephritis associated with obstruction. Description of Procedure: The patient was taken to the operating suite where adequate general anesthesia via LMA was instituted. She was placed in the dorsal lithotomy position with her legs suspended from padded Eleuterio stirrups. Genitalia was prepped with Betadine solution and draped in a sterile fashion. The external genitalia and urethral meatus were normal. The 23-[place] cystoscope sheath with obturator was passed through the urethra and into the bladder. The bladder was examined with the 30 lens. Both ureteral orifices were of normal location and configuration. The bladder was free of tumor, foreign body and diverticulum. Using fluoroscopic guidance a 0.035 straight Glidewire was passed through the right ureteral orifice and up into the region of the renal pelvis. A 6-[place] open-ended ureteral catheter was advanced over the Glidewire and positioned so that the proximal end was in the region of the renal pelvis. I attempted to aspirate urine to be submitted for culture but this proved to be impossible. 3 mL of contrast was then in instilled through the open-ended ureteral catheters to confirm that the end of the catheter was in the renal pelvis. The Glidewire was replaced and positioned so that it coiled in the region of the renal pelvis. The open-ended ureteral catheter was removed. A 6-[place] by 24 cm double-J catheter was then advanced over the Glidewire and positioned fluoroscopically so that the proximal end coiled in the region of the renal pelvis and the distal end coiled in the bladder. Bladder was drained and the cystoscope was withdrawn. Patient tolerated procedure well and left the operative room awake and in satisfactory condition. Patient will be continued on antibiotics pending results of her urine culture. She will be admitted for observation.
[2020-02-28] MEDS: SODIUM CHLORIDE 0.9% 1,000 ML IV SCH ×2 (17:42→21:01)
[2020-02-28] MEDS: ALPRAZolam 0.25 MG TAB PO SCH (20:59)
[2020-02-28] MEDS: GABAPENTIN 300 MG CAP PO SCH (20:59)
--- NOTE | 2020-02-28 21:24 | FL ---
Fluoroscopy HISTORY: Stent placement 21 seconds fluoroscopy time supplied to the referring clinician. 2 intraoperative C-arm images docum ent the procedure. See dictated report from urology.
[2020-02-29] MEDS: SODIUM CHLORIDE 0.9% 1,000 ML IV SCH (05:40)
[2020-02-29 06:30] LABS: Basophils % (A) 0 %; Eosinophils % (A) 0 %; HCT 35.5 % (34.0-46.0); HGB 11.9 gm/dL (11.4-16.0); Lymphocytes # (A) 0.6 k/uL (1.0-4.8); Lymphocytes % (A) 4 %; MCH 31.5 pg (25.0-35.0); MCHC 33.6 g/dL (31.0-37.0); MCV 93.7 fL (80.0-100.0); Mean Platelet Volume 7.4; Monocytes # (A) 0.5 k/uL (0-1.0); Monocytes % (A) 4 %; Neutrophils # (A) 12.5 k/uL (1.3-7.7); Neutrophils % (A) 91 %; Platelet Count 152 k/uL (150-450); RBC 3.79 m/uL (3.80-5.40); RDW 13.1 % (11.5-15.5); WBC 13.9 k/uL (3.8-10.6)
[2020-02-29] MEDS ORDERED: ULTIMATE OMEGA PO SCH (09:45)
[2020-02-29] MEDS: ACETAMINOPHEN TAB 500 MG TAB PO PRN (10:08)
[2020-02-29] MEDS: OXYBUTYNIN 15 MG TAB.ER.24 PO SCH (10:10)
[2020-02-29] MEDS: LORATADINE 10 MG TAB PO SCH (10:10)
[2020-02-29] MEDS: MELOXICAM 7.5 MG TAB PO SCH (10:12)
[2020-02-29] MEDS: CITALOPRAM HYDROBROMIDE 20 MG TAB PO SCH (10:12)
[2020-02-29 10:14] LABS: African American GFR (CKD) 75.1 (60.0-200.0); Anion Gap 6.8 mmol/L (4.00-12.00); BUN/Creat Ratio 15.56 Ratio (12.00-20.00); Calcium 7.6 mg/dL (8.7-10.3); Carbon Dioxide 20.2 mmol/L (21.6-31.8); Non-African American GFR(CKD) 64.8 (60.0-200.0)
[2020-02-29] MEDS: CHOLECALCIFEROL 1,000 UNIT TAB PO SCH (10:14)
[2020-02-29] MEDS: LOSARTAN 50 MG TAB PO SCH (10:21)
--- NOTE | 2020-02-29 17:16 | P.PN ---
Progress Note - Text Progress Note Date: 02/29/20 The patient was noted to have a fever of 101.5 yesterday afternoon prior to placement of the right double-J catheter. Since then she has remained afebrile and says that her flank pain is much improved. She is tolerating a diet. Her white blood count is improved at 13,900. Lactic acid at 1855 yesterday was 2.5 and at 2100 was 1.4. The patient will be continued on Levaquin pending results of her urine culture.
[2020-02-29] MEDS: ALPRAZolam 0.25 MG TAB PO SCH (21:04)
[2020-02-29] MEDS: GABAPENTIN 300 MG CAP PO SCH (21:04)
[2020-03-01 07:43] VITALS: BP 150/84; PULSE 101; RESP 18; TEMP 98.1
[2020-03-01] MEDS: CITALOPRAM HYDROBROMIDE 20 MG TAB PO SCH (08:42)
[2020-03-01] MEDS: CHOLECALCIFEROL 1,000 UNIT TAB PO SCH (08:42)
[2020-03-01] MEDS: LORATADINE 10 MG TAB PO SCH (08:43)
[2020-03-01] MEDS: LOSARTAN 50 MG TAB PO SCH (08:43)
[2020-03-01] MEDS: OXYBUTYNIN 15 MG TAB.ER.24 PO SCH ×2 (08:43→08:58)
[2020-03-01] MEDS: MELOXICAM 7.5 MG TAB PO SCH (08:44)
[2020-03-01] MEDS: ACETAMINOPHEN TAB 500 MG TAB PO PRN (08:45)
[2020-03-01] MEDS ORDERED: LEVOFLOXACIN 750MG-D5W PMX 750 MG in DEXTROSE/WATER 1 150ML.BAG IVPB SCH (09:00)
--- NOTE | 2020-03-01 20:22 | P.DS ---
Providers Date of admission: 02/28/20 15:26 Expected date of discharge: 03/01/20 Attending physician: Chuy Coleman Primary care physician: Pricilla Gomez - Discharge Diagnosis(es) (1) Hydronephrosis with renal and ureteral calculous obstruction The patient is a 69-year-old female who was admitted with nausea, vomiting and right flank and abdominal pain. She had been experiencing chills at home but had no fever at the time of admission. She was noted to have an elevated white blood count and lactic acid and her urinalysis suggested a urinary tract infection with early sepsis. CT scan of the abdomen and pelvis without IV contrast showed a 6 x 13 mm obstructive calculus at the right ureteropelvic junction with secondary hydronephrosis and perinephric stranding. Due to concern in regard to a combination of infection and obstruction involving the right kidney it was elected to place a right double-J catheter later on the date of admission. The patient was started on Levaquin 750 mg every 48 hours. She did have a temperature of 101.5 on the afternoon of admission prior to placement of the double-J catheter but remained afebrile during the remainder of her hospital stay. Her right flank pain, nausea and vomiting were greatly improved overnight and she was tolerating a regular diet the following morning. She was discharged on 03/01. Blood cultures showed no growth. Urine culture was growing a gram-negative ellen but the final identification and sensitivities were pending. Because the patient was clinically improved and receiving Levaquin 750 mg every 48 hours it was felt safe to discharge the patient with the intent of contacting her the following morning when the culture and sensitivity should be completed. The patient will eventually require either ESWL or ureteroscopy with lithotripsy for treatment of her right renal calculus. Status: Acute Patient Condition at Discharge: Good Plan - Discharge Summary New Discharge Prescriptions: No Action Gabapentin [Neurontin] 300 mg PO HS ALPRAZolam [Xanax] 0.25 mg PO HS Oxybutynin Chloride [Oxybutynin Chloride ER] 15 mg PO DAILY RX: Meloxicam 7.5 mg PO DAILY Fexofenadine HCl [Stefania Allergy] 180 mg PO DAILY RX: Citalopram Hydrobromide [Citalopram HBr] 40 mg PO DAILY Olmesartan Medoxomil [Benicar] 20 mg PO DAILY Alendronate Sodium [Fosamax] 70 mg PO SA Cholecalciferol [Vitamin D3 (25 Mcg = 1000 Iu)] 1,000 unit PO DAILY Ultimate [place] 1 tab PO DAILY Discharge Medication List ALPRAZolam [Xanax] 0.25 mg PO HS 04/06/19 [History] Alendronate Sodium [Fosamax] 70 mg PO SA 04/06/19 [History] Fexofenadine HCl [Stefania Allergy] 180 mg PO DAILY 04/06/19 [History] Gabapentin [Neurontin] 300 mg PO HS 04/06/19 [History] Olmesartan Medoxomil [Benicar] 20 mg PO DAILY 04/06/19 [History] Oxybutynin Chloride [Oxybutynin Chloride ER] 15 mg PO DAILY 04/06/19 [History] RX: Citalopram Hydrobromide [Citalopram HBr] 40 mg PO DAILY 04/06/19 [History] RX: Meloxicam 7.5 mg PO DAILY 04/06/19 [History] Cholecalciferol [Vitamin D3 (25 Mcg = 1000 Iu)] 1,000 unit PO DAILY 02/28/20 [History] Ultimate [place] 1 tab PO DAILY 02/28/20 [History] Follow up Appointment(s)/Referral(s): Chuy Coleman MD [STAFF PHYSICIAN] - 03/08/20 1:00 am (FridayMar.08 at 1:00.) Pricilla Gomez MD [Primary Care Provider] - As Needed Patient Instructions/Handouts: Urinary Tract Infection in Women (DC), Ureteral Stones (DC) Discharge Disposition: HOME SELF-CARE Pending Studies Pending Results: Urine culture and sensitivity
[2020-03-02] MEDS ORDERED: LEVOFLOXACIN 750MG-D5W PMX 750 MG in DEXTROSE/WATER 1 150ML.BAG IVPB SCH (09:00)
[2020-03-04] MEDS ORDERED: NON FORMULARY DRUG (Alendronate Sodium [Fosamax] 70 MG Tablet) PO SCH (09:00)
== END 2020-03-01 14:15 | disposition home or self-care (01) | DRG 854 ==
LOC: EC 12:01 → 5NMEDONC 15:26
PROVIDERS: ADMIT Urology; ATTEND Urology
PROC: 0T768DZ Dilation of Right Ureter with Intraluminal Device, Via Natural or Artificial Opening Endoscopic (ICD-10-PCS; principal; 2020-02-28 15:30)
DX: A41.9 Sepsis, unspecified organism (principal); N13.6 Pyonephrosis; E87.2 Acidosis; I10 Essential (primary) hypertension; Z79.1 Long term (current) use of non-steroidal anti-inflammatories (NSAID); Z79.899 Other long term (current) drug therapy; Z79.83 Long term (current) use of bisphosphonates; Z98.890 Other specified postprocedural states; Z87.440 Personal history of urinary (tract) infections; Z87.81 Personal history of (healed) traumatic fracture; Z88.0 Allergy status to penicillin
CPT/HCPCS: 36415; 74176; 74420; 80048; 80053; 81001; 82150; 83605; 83690; 85025; 87040; 87077; 87086; 87186; 96361; 96374; 96375; 99285

== ENCOUNTER → 2020-03-21 | Outpatient (CLI) | payer MEDICARE ==
--- NOTE | 2020-03-21 11:43 | XR ---
EXAMINATION TYPE: XR KUB DATE OF EXAM: 03/21/2020 HISTORY: Pain Comparison: None.Single KUB is submitted for interpretation. Findings: Right renal calculi: Cluster of calcifications is noted overlying the lower pole of the right kidney with the largest calculus measuring 4 mm. Right ureteral calculi: Double-pigtail right ureteral stent is in place. There are calculi noted at t he proximal extent of the stent measuring 7.4 mm. Left renal calculi: None Visualized. Left ureteral calculi: None Visualized. Pelvic calcifications: Pelvic calcification compatible with calcified leiomyoma. Bowel gas pattern is unremarkable. No free air. No mass effects. IMPRESSION: 1. As above
== END | disposition home or self-care (01) ==
LOC: RADXRMAIN 10:48
PROVIDERS: ATTEND Urology
DX: N20.0 Calculus of kidney (principal); Z96.0 Presence of urogenital implants
CPT/HCPCS: 74018

== ENCOUNTER 2021-08-24 13:13 | Inpatient (IN) | payer MEDICARE ==
--- NOTE | 2021-08-24 13:36 | ED ---
General Adult HPI - General Chief complaint: Fall Stated complaint: Fall Time Seen by Provider: 08/24/21 13:28 Source: patient, EMS, RN notes reviewed Mode of arrival: EMS Limitations: no limitations - History of Present Illness Initial comments: Patient is a pleasant 71-year-old female presenting to the emergency department with left leg pain. Patient slipped going down her wooden steps outside. Patient landed hard on her left leg and then landed on her left upper leg. Patient had deformity and severe discomfort left upper leg. EMS placed patient in traction and provided pain medications. Patient states discomfort is tolerable at this time. No syncope. No head injury or loss of consciousness. No neck or back pain. No other area of injury or concern. - Related Data Home Medications Medication Instructions Recorded Confirmed ALPRAZolam [Xanax] 0.25 mg PO HS PRN 04/06/19 08/24/21 Alendronate Sodium [Fosamax] 70 mg PO LOVE 04/06/19 08/24/21 Citalopram Hydrobromide 40 mg PO DAILY 04/06/19 08/24/21 [Citalopram HBr] Fexofenadine HCl [Stefania Allergy] 180 mg PO DAILY 04/06/19 08/24/21 Gabapentin [Neurontin] 300 mg PO HS 04/06/19 08/24/21 Meloxicam 7.5 mg PO DAILY 04/06/19 08/24/21 Olmesartan Medoxomil [Benicar] 20 mg PO DAILY 04/06/19 08/24/21 Oxybutynin Chloride [Oxybutynin 15 mg PO DAILY 04/06/19 08/24/21 Chloride ER] Calcium Carbonate [Calcium] 1,200 mg PO BID 08/24/21 08/24/21 Ultimate [place]-3 1280mg 2 tab PO DAILY 08/24/21 08/24/21 Allergies Allergy/AdvReac Type Severity Reaction Status Date / Time Penicillins Allergy RASH/SWELLI Verified 08/24/21 14:32 NG Review of Systems ROS Statement: Those systems with pertinent positive or pertinent negative responses have been documented in the HPI. ROS Other: All systems not noted in ROS Statement are negative. Constitutional: Denies: fever Eyes: Denies: eye pain ENT: Denies: ear pain Respiratory: Denies: cough Cardiovascular: Denies: chest pain Endocrine: Denies: fatigue Gastrointestinal: Denies: abdominal pain Genitourinary: Denies: dysuria Musculoskeletal: Reports: as per HPI Skin: Denies: rash Neurological: Denies: weakness Past Medical History Past Medical History: Hypertension History of Any Multi-Drug Resistant Organisms: None Reported Past Surgical History: Back Surgery, Orthopedic Surgery Past Psychological History: No Psychological Hx Reported Smoking Status: Never smoker Past Alcohol Use History: Occasional Past Drug Use History: None Reported General Exam Limitations: no limitations General appearance: alert, in no apparent distress Head exam: Present: normocephalic Eye exam: Present: normal appearance Neck exam: Present: normal inspection. Absent: tenderness Respiratory exam: Present: normal lung sounds bilaterally Cardiovascular Exam: Present: regular rate, normal rhythm Expanded Peripheral pulses: 2+: Dorsalis Pedis (L) GI/Abdominal exam: Present: soft. Absent: tenderness Extremities exam: Present: tenderness (Left femur midshaft with fullness and tenderness. Distally the extremity is neurovascular intact.) Neurological exam: Present: alert. Absent: motor sensory deficit Psychiatric exam: Present: normal affect, normal mood Skin exam: Present: normal color Course Vital Signs 08/24/21 13:16 Temperature 98.1 F Pulse Rate 76 Respiratory 16 Rate Blood Pressure 121/75 O2 Sat by Pulse 94 L Oximetry Medical Decision Making - Medical Decision Making Patient reevaluated and updated. Case discussed with practitioner [place] with Dr. Bautista who will admit. - Radiology Data Radiology results: image reviewed (Chest x-ray shows no acute process. Left femur x-ray shows comminuted midshaft femur fracture.) Disposition Clinical Impression: Femur fracture, left Disposition: ADMITTED IP TO THIS HOSP Is patient prescribed a controlled substance at d/c from ED?: No Referrals: Pricilla Gomez MD [Primary Care Provider] - 1-2 days Time of Disposition: 14:40
--- NOTE | 2021-08-24 14:16 | XR ---
EXAMINATION TYPE: XR femur LT DATE OF EXAM: 08/24/2021 CLINICAL HISTORY: Fall injury with pain TECHNIQUE: Two views of the left femur are obtained. COMPARISON: None FINDINGS: There is an acute minimally displaced comminuted fracture of mid to distal diaphysis left femur. The left hip and knee joints appear within normal limits. Calcification in the pelvis superio r to pubic symphysis favors calcified fibroid. Overlying brace is present. IMPRESSION: As above.
--- NOTE | 2021-08-24 14:18 | XR ---
EXAMINATION TYPE: XR chest 1V DATE OF EXAM: 08/24/2021 COMPARISON: Prior chest x-ray April 09, 2019 HISTORY: Presurgical study. Recent fall injury. TECHNIQUE: Single frontal view of the chest is obtained. FINDINGS: There is some chronic parenchymal changes bilaterally without suspicious new focal air spa ce opacity, pleural effusion, or pneumothorax seen. The cardiac silhouette size is mildly enlarged. The osseous structures are demineralized. Underlying scoliosis is redemonstrated. Overlying bra str ap is present. IMPRESSION: Chronic changes and cardiomegaly without acute pulmonary process.
[2021-08-24] MEDS ORDERED: IBUPROFEN 400 MG TAB PO PRN (14:40)
[2021-08-24] MEDS ORDERED: ACETAMINOPHEN TAB 325 MG TAB PO PRN (14:40)
[2021-08-24] MEDS ORDERED: NALOXONE 0.4 MG/ML 1 ML VIAL IV PRN (14:40)
[2021-08-24] MEDS ORDERED: MORPHINE SULFATE 4 MG/ML SYRINGE IV PRN (14:40)
[2021-08-24 16:17] LABS: Basophils % (A) 0 %; Eosinophils % (A) 0 %; HCT 39.9 % (34.0-46.0); HGB 12.6 gm/dL (11.4-16.0); Lymphocytes # (A) 1.2 k/uL (1.0-4.8); Lymphocytes % (A) 14 %; MCH 30.2 pg (25.0-35.0); MCHC 31.6 g/dL (31.0-37.0); MCV 95.6 fL (80.0-100.0); Mean Platelet Volume 7.5; Monocytes # (A) 0.4 k/uL (0-1.0); Monocytes % (A) 4 %; Neutrophils # (A) 6.6 k/uL (1.3-7.7); Neutrophils % (A) 79 %; Platelet Count 230 k/uL (150-450); RBC 4.18 m/uL (3.80-5.40); RDW 13.2 % (11.5-15.5); WBC 8.3 k/uL (3.8-10.6)
[2021-08-24 16:19] LABS: Potassium 4.6 mmol/L (3.5-5.1)
[2021-08-24] MEDS ORDERED: HYDROcodone/APAP 5-325MG 1 EACH TAB PO PRN ×2 (16:23→16:30)
--- NOTE | 2021-08-24 17:30 | P.HPOR ---
History of Present Illness H&P Date: 08/24/21 Chief Complaint: Left femur pain; inability to ambulate due to femur Patient is a very pleasant 71-year-old female known to our service was seen and examined at bedside for further evaluation of her left lower extremity. She states she slipped on some wet steps injuring her left leg. She was brought to the emergency department for further evaluation. She was placed in traction. Imaging shows evidence of acute minimally displaced comminuted fracture to the m id to distal diaphysis of the left femur. She is admitted to our service for further evaluation. Fatima catheter has been placed. She is currently nonweightbearing and on bedrest. She denies any other injuries. Her pain was adequately controlled until transferred to the floor. She has been experiencing some and decreased left femur pain since that time. She states she has a fairly healthy patient. She does have a history of hypertension. Consultation has been placed with medicine for surgical clearance prior to surgical intervention. We did discuss she can continue to be throughout the day will become nothing by mouth status at midnight in anticipation for surgical intervention tomorrow morning. She does have a history of previous right femur fracture requiring surgical intervention. Past Medical History Past Medical History: Hypertension History of Any Multi-Drug Resistant Organisms: None Reported Past Surgical History: Back Surgery, Orthopedic Surgery Past Psychological History: No Psychological Hx Reported Smoking Status: Never smoker Past Alcohol Use History: Occasional Past Drug Use History: None Reported Medications and Allergies Home Medications Medication Instructions Recorded Confirmed Type ALPRAZolam [Xanax] 0.25 mg PO HS PRN 04/06/19 08/24/21 History Alendronate Sodium [Fosamax] 70 mg PO LOVE 04/06/19 08/24/21 History Citalopram Hydrobromide 40 mg PO DAILY 04/06/19 08/24/21 History [Citalopram HBr] Fexofenadine HCl [Stefania Allergy] 180 mg PO DAILY 04/06/19 08/24/21 History Gabapentin [Neurontin] 300 mg PO HS 04/06/19 08/24/21 History Meloxicam 7.5 mg PO DAILY 04/06/19 08/24/21 History Olmesartan Medoxomil [Benicar] 20 mg PO DAILY 04/06/19 08/24/21 History Oxybutynin Chloride [Oxybutynin 15 mg PO DAILY 04/06/19 08/24/21 History Chloride ER] Calcium Carbonate [Calcium] 1,200 mg PO BID 08/24/21 08/24/21 History Ultimate [place]-3 1280mg 2 tab PO DAILY 08/24/21 08/24/21 History Allergies Allergy/AdvReac Type Severity Reaction Status Date / Time Penicillins Allergy RASH/SWELLI Verified 08/24/21 14:32 NG Physical Examination Osteopathic Statement: *. No significant issues noted on an osteopathic structural exam other than those noted in the History and Physical/Consult. Physical Exam: Patient is awake, alert, and oriented 3 Vital signs stable Good chest excursion with deep inspiration and expiration Evidence of traction device in place over the left lower extremity Evidence of No signs or symptoms of DVT; no calf pain Obvious deformity at the left femur Extensor hallucis longus, plantarflexion, and dorsiflexion positive sustained bilateral lower extremities Patient does have coolness to palpation over the feet and toes bilaterally which patient states is chronic Neurovascular intact bilateral lower extremities Fatima catheter intact Traction device intact over the left lower extremity Results Pertinent studies: X-rays of the left femur taken on 08/24/2021: Evidence of brace intact; acute minimally displaced comminuted fracture of the mid to distal diaphysis left femur - Labs Labs: Abnormal Lab Results - Last 24 Hours (Table) 08/24/21 Range/Units 15:54 Sodium 135 L (137-145) mmol/L H & H 08/24/21 Range/Units 15:54 Hgb 12.6 (11.4-16.0) gm/dL Hct 39.9 (34.0-46.0) % Result Diagrams: 08/24/21 15:54 08/24/21 15:54 Assessment and Plan Assessment: Assessment: Acute traumatic displaced comminuted fracture of the mid to distal diaphysis of the left femur Left leg pain Ambulating and ambulate due to leg Status post fall Hypertension Left lower extremity muscle spasm (1) Status post fall Current Visit: Yes Status: Acute Code(s): Z91.81 - HISTORY OF FALLING SNOMED Code(s): 329789698 (2) Left leg pain Current Visit: Yes Status: Acute Code(s): M79.605 - PAIN IN LEFT LEG SNOMED Code(s): 655215264 (3) Muscle spasm of left lower extremity Current Visit: Yes Status: Acute Code(s): M62.838 - OTHER MUSCLE SPASM SNOMED Code(s): 04636371 (4) Femur fracture, left Current Visit: Yes Status: Acute Code(s): S72.92XA - UNSP FRACTURE OF LEFT FEMUR, INIT ENCNTR FOR CLOSED FRACTURE SNOMED Code(s): 86219860 (5) Hypertension Current Visit: No Status: Acute Code(s): I10 - ESSENTIAL (PRIMARY) HYPERTENSION SNOMED Code(s): 93692714 Plan: Plan: 1. Patient has been discussed in detail with Dr. David Bautista. After reviewing of imaging, further discussion with the patient, physical examination the p atient, who currently planned to proceed forward with surgical intervention at her left femur tomorrow morning, 08/25/2021, if cleared by medicine. Patient is a fairly healthy patient with a history of hypertension. She is not on any anticoagulation medication. Patient sustained a fall on wet steps injuring her left leg. Imaging shows evidence of a displaced comminuted fracture of the mid to distal diaphysis of the left femur. We did discuss based on her fracture surgical intervention to stabilize her fracture gives her the best opportunity to have improvement of her pain and also the best opportunity to improve her ambulation on her left lower extremity. Without surgical intervention she would most likely be unable to ambulate again on her left lower extremity. Patient states given her fracture and severe pain she would like to proceed forward with surgical intervention at her left femur. The proposed surgical intervention is a intramedullary nail fixation of the left femur. I discussed these issues with the patient at length and I answered all of their questions to the best of my ability and the patient understands. I discussed the risk of surgical intervention and alternative treatment options. The risk of surgical intervention was explained to the patient in detail including but not limited to risk of bleeding, risk of infection, risk and need for further surgery, risk of decreased loss of motion of function, malunion, nonunion, hardware failure, nerve damage, paralysis, heart attack, , as well as the fact that surgery may not alleviate her symptoms. I answered all the patient's questions the best of my ability. The patient would like to proceed forward with surgical intervention and will sign informed consent. 2. Patient will continue nonweightbearing on left lower extremity and on bedrest 3. Patient will keep Fatima catheter intact 4. Continue pain control medications as prescribed. We will plan to adjust her medications. Patient may take [place] 10 mg/325 mg 1-2 tabs every 4 hours as needed for pain. Patient may receive Dilaudid IV 1 mg every 3 hours as needed for pain. We will add cycle Benzapril 10 mg 1 3 times a day as needed for muscle spasm. 5. Patient will be coming nothing by mouth status after midnight, 08/25/2021, in anticipation for surgical intervention tomorrow morning 6. Patient will also be started on sodium chloride 0.9% 75 mL per hour 7. Consultation has been placed with medicine for surgical clearance; appr opriate lab tests including CBC, BMP, UA, PT/INR, chest x-ray, and EKG have been ordered I have seen and examined the patient and the images, and i agree with the above dictation. we will plan to proceed with left femur surgery today. Time with Patient: Greater than 30 (Including obtaining history, physical examination, reviewing of imaging, and dictation.)
[2021-08-24 17:32] LABS: Partial Thromboplastin Time 22.6 sec (22.0-30.0); Prothrombin Time 10.5 sec (9.0-12.0)
[2021-08-24] MEDS: HYDROcodone/APAP 10-325MG 1 EACH TAB PO PRN ×2 (17:43→21:45)
[2021-08-24] MEDS ORDERED: diazePAM 5 MG TAB PO PRN (18:05)
[2021-08-24] MEDS: HYDROmorphone 1 MG/ML 1 ML SYRINGE IVP PRN ×2 (18:11→21:45)
[2021-08-24] MEDS: SODIUM CHLORIDE 0.9% 1,000 ML IV SCH (18:13)
[2021-08-25] MEDS: HYDROcodone/APAP 10-325MG 1 EACH TAB PO PRN ×3 (01:42→21:38)
[2021-08-25] MEDS: HYDROmorphone 1 MG/ML 1 ML SYRINGE IVP PRN ×2 (05:38→09:13)
[2021-08-25] MEDS: SODIUM CHLORIDE 0.9% 1,000 ML IV SCH ×3 (08:05→22:23)
[2021-08-25] MEDS ORDERED: MIDAZOLAM 2 MG/2 ML VIAL IVP ONE (11:26)
[2021-08-25] MEDS ORDERED: ROCURONIUM 10 MG/ML (5 ML VIAL) IV ONE (11:30)
[2021-08-25] MEDS ORDERED: ROPIVACAINE 5 MG/ML 30 ML VIAL ONE (11:30)
[2021-08-25] MEDS ORDERED: SUCCINYLCHOLINE CHLORIDE 100 MG/5 ML SYR IV ONE (11:30)
[2021-08-25] MEDS ORDERED: PROPOFOL 10 MG/ML 20 ML VIAL IV ONE (11:30)
[2021-08-25] MEDS ORDERED: LIDOCAINE 2% INJ 20 MG/ML (2 ML VIAL) ONE (11:30)
[2021-08-25] MEDS ORDERED: GLYCOPYRROLATE 0.2 MG/ML 2 ML VIAL ONE (11:30)
[2021-08-25] MEDS ORDERED: fentaNYL (PF) 50 MCG/ML 2 ML AMP ONE (11:30)
[2021-08-25] MEDS ORDERED: DEXAMETHASONE SOD PHOSPHATE 4 MG/ML 1 ML VIAL ONE (11:30)
[2021-08-25] MEDS ORDERED: PHENYLEPHRINE-0.9% NACL SYG 1,000 MCG/10 ML SYRINGE ONE (11:30)
[2021-08-25] MEDS ORDERED: NEOSTIGMINE 1 MG/ML 10 ML VIAL ONE (11:30)
[2021-08-25] MEDS ORDERED: IV FLUID CONTINUATION 1,000 ML IV ONE (11:38)
[2021-08-25] MEDS ORDERED: LIDOCAINE 1% (10MG/ML) FOR IV START INTRADERMA PRN (11:44)
[2021-08-25] MEDS ORDERED: DEXAMETHASONE SOD PHOSPHATE 4 MG/ML 1 ML VIAL IV ONE (11:44)
[2021-08-25] MEDS ORDERED: ONDANSETRON 4 MG/2 ML VIAL IVP ONE (11:44)
[2021-08-25] MEDS ORDERED: SODIUM CHLORIDE 0.9% 100 ML with ceFAZolin 2,000 MG IV ONE ×2 (11:50)
--- NOTE | 2021-08-25 12:05 | P.ANPRN ---
Procedure Note - Anesthesia - Nerve Block Performed Left Fascia Iliaca Single Time Out Performed: Yes Date of Procedure: 08/25/21 Procedure Start Time: : Procedure Stop Time: 11:35 Location of Patient: PreOp Indication: Acute Post-Operative Pain, Requested by Surgeon Sedation Type: Sedate with meaningful contact maintained Preparation: Sterile Prep, Sterile Dressing Position: Supine Catheter: None Needle Types: Facet Needle Gauge: 20 Ultrasound used to visualize needle placement: Yes Ultrasound used to observe medication spread: Yes Injectate: Other (see comment) (Ropivacaine 0.2% 30 ml + decadron 2 mg) Blood Aspirated: No Pain Paresthesia on Injection Noted: No Resistance on Injection: Normal Image Stored and Saved: Yes Events: Uneventful and Well Tolerated Left Other (see comment) Single Time Out Performed: Yes (Left femoral nerve block) Date of Procedure: 08/25/21 Procedure Start Time: Procedure Stop Time: :32 Location of Patient: PreOp Indication: Acute Post-Operative Pain, Requested by Surgeon Sedation Type: Sedate with meaningful contact maintained Preparation: Sterile Prep, Sterile Dressing Position: Supine Catheter: None Needle Types: Facet Needle Gauge: 20 Ultrasound used to visualize needle placement: Yes Ultrasound used to observe medication spread: Yes Injectate: 0.5% Ropivacaine (see comment for volume) (15 ml + decadron 2 mg) Blood Aspirated: No Pain Paresthesia on Injection Noted: No Resistance on Injection: Normal Image Stored and Saved: Yes Events: Uneventful and Well Tolerated
[2021-08-25] MEDS ORDERED: LACTATED RINGERS 1,000 ML IV ONE (12:41)
[2021-08-25] MEDS ORDERED: BENZOCAINE/MENTHOL LOZENG 1 EACH LOZENGE MUCOUS MEM PRN (13:12)
[2021-08-25] MEDS ORDERED: HYDROmorphone 0.5 MG/0.5 ML SYRINGE IVP PRN (13:12)
[2021-08-25] MEDS ORDERED: HYDROcodone/APAP 5-325MG 1 EACH TAB PO PRN (13:12)
[2021-08-25] MEDS ORDERED: NALOXONE 0.4 MG/ML 1 ML VIAL IV PRN (13:13)
--- NOTE | 2021-08-25 13:23 | P.OP ---
Date of Procedure: 08/25/21 Preoperative Diagnosis: Left femur shaft fracture, acute traumatic due to a fall with angulation and displacement Postoperative Diagnosis: Same Anesthesia: GETA Pathology: other (Left femoral reamings sent to pathology) Condition: stable Disposition: PACU Description of Procedure: Preoperative diagnosis: Left femur shaft fracture, acute traumatic due to a fall with angulation and displacement Postoperative diagnosis: Left femur shaft fracture, acute traumatic due to a fall with angulation and displacement Procedure: Left femur intramedullary rodding with antegrade femoral nail Use of fluoroscopic guidance Closed reduction Surgeon: Dr. Michele Ramirez.: Valerie Barahona who is present that the entire the case persistence during positioning dissection exposure placement of hardware and closure Anesthesia: Gen. Estimated blood loss: Approximately 200 mL Components implanted: [employer] InterTAN 11 mm x 400 m x 125 angle intramedullary femoral ellen with a 95 mm femoral neck screw and 90 mm femoral neck locking screw and a 40 mm distal locking screw Disposition: To recovery room in good stable condition Operative indications The patient sustained a injury and suffered a left femoral shaft fracture which was displaced and angulated. She was at home and was on some slippery stairs and fell down the stairs. She denies any loss of consciousness. Denies any chest pain or shortness of breath. She is normally a community ambulate without any assistance. She did have a right femoral shaft fracture about a year ago and had femoral rodding on the right side the past. We were involved in the case in regard to her left femur fracture. She had acute left femur shaft fracture due to her fall. After evaluation it was determined that they would be a candidate for left femur intramedullary rodding and fixation and stabilization via surgical intervention. This would give them the best chance of mobilization and ambulation. We discussed the range of treatment options from conservative to surgical. They elected proceed with surgical intervention. We answered their questions to the best of our ability healing which they can understand. They signed an informed consent. Operative summary After obtaining informed consent evaluation by anesthesia, preoperative evaluation and clearance for medical service, the patient was identified and prepped Fatima area and the surgical site was marked. There brought to the operating room where the given appropriate anesthesia by the anesthesia department in standard fashion without any complications. Once the anesthesia was established we were able to position the patient. The patient was placed on a fracture table with a well-padded perineal post. The operative side was placed in a foot valdovinos stirrup which was well-padded well molded and placed in gentle in-line traction. The nonoperative leg was placed in a padded foot stirrup as well without any significant traction. C-arm was brought in and we performed a closed reduction technique at the left femur. We are able to get good alignment good position of the left femur shaft fracture with gentle reduction techniques and traction utilizing the fracture table. Once patient was well positioned lower extremity was prepped and draped in normal standard sterile fashion. An appropriate keystone protocol and timeout was completed and were able to proceed with surgery. He started point just proximal to the greater trochanter was established and a median incision approximately 2 inches in length approximately to the greater trochanter. I dissected down through the fascia and I was able to expose the tip of the greater trochanter. A sharp starting hole was established at the tip of the greater trochanter near the junction of the anterior and middle third. Positioning was confirmed with C-arm guidance. I was able to start the awl into the bone and then use a guidepin at the starting point establish down to the level of the lesser trochanter at the intramedullary space. I then used a starting reamer for the greater trochanter placed over the guidepin and reamed down appropriately under C-arm guidance. I was able to place a guidepin into the intramedullary aspect of the femur and then reamed appropriately to the appropriate length. The guidepin was passed across the fracture site and into the distal femur at the level of the screw aspect of the patella within the femoral shaft. I was unable to measure appropriately for the length of the ellen and then reaming was proceed up to a 13 mm reamer with a fracture held in good reduced position. The positioning was confirmed on C-arm guidance. With the femur appropriately reamed I then chose the appropriate size intrame dullary ellen which was connected to the appropriate jig. The jig was checked for alignment. The area was copiously irrigated and suctioned dry and we're able place the ellen at intramedullary space through the starting hole appropriately. It was seated down for appropriate position to align the leg pain into the femoral neck and head. I was able to pass the ellen across the fracture site and into the distal femur at the level of the metaphyseal diaphyseal junction. A second incision was established at the site for the placement of the lag screw area and the guide was established at the lateral aspect of the femur and a guidepin was drilled into the femoral neck and head and near center center position. With this appropriate alignment and position where a reamer over the guidepin making sure not to penetrate the articular surface. The position was confirmed on C-arm guidance in AP and lateral positions. With this established we were able to place the appropriate size lag screw after measuring. Lag screw was placed into the femoral neck and head good alignment good position with excellent bony purchase. It was appropriately aligned and we placed a locking screw through the ellen appropriately and checked that the position was established. I was able to drill and place the compression screw immediately adjacent and inferior to the lag screw in good alignment and position. With proximal fixation accomplished the fracture site was in excellent alignment and position and we had some extra compression across fracture site manually. I was unable to turn my attention to the distal locking screw. I felt that she had good cortical contact on to place a single screw for derotational use at the dynamic fixation hole near the tip of the ellen. I used a freehand technique with C-arm guidance and was able to drill appropriately through separate incision. With the area in good position able place a distal locking screw. It was measured appropriately and a distal locking screw was placed in good alignment and good position with excellent bony purchase. The position was checked to make sure it was through the appropriate hole in the intramedullary ellen. final images were taken which showed excellent alignment and position of the hardware and the fracture. With the ellen in place and the fracture stable, although the incision sites were copiously irrigated and suctioned dry. Good hemostasis was maintained. Deep fascial layers were closed with #1 Vicryl. Subcu tissue was closed with 2-0 Vicryl. Subcuticular tissues closed with 3-0 Vicryl. Was are cleaned and dried with dressed with exophyin glue and waterproof dressing Drapes were broken down, the hip was held in stable position with the post being removed safely once the positioning was stabilized. The patient was then transferred back to their hospital bed being careful to maintain the hip and C- spine alignment and airway. Once stable to patient was transferred back to the postanesthesia care unit to be readmitted for pain control and DVT prophylaxis medical management and monitoring and mobilization we will continue follow patient closely throughout their postoperative course.
--- NOTE | 2021-08-25 13:26 | XR ---
Fluoroscopy INDICATION: Pain FINDINGS: Fluoroscopy time: 1 minute 39 seconds. Images obtained: 6. IMPRESSIONS: 1. Documentation of fluoroscopy.
--- NOTE | 2021-08-25 13:32 | FL ---
Fluoroscopy INDICATION: Pain FINDINGS: Fluoroscopy time: 1 minute 39 seconds. Images obtained: 0. IMPRESSIONS: 1. Documentation of fluoroscopy.
[2021-08-25] MEDS ORDERED: HYDROmorphone 0.5 MG/0.5 ML SYRINGE IVP ONE (14:16)
[2021-08-25] MEDS: LACTATED RINGERS 1,000 ML IV SCH (14:54)
[2021-08-25 18:28] LABS: Basophils % (A) 0 %; Eosinophils % (A) 0 %; HCT 34.9 % (34.0-46.0); HGB 10.5 gm/dL (11.4-16.0); Hypochromasia Slight; Lymphocytes # (A) 0.4 k/uL (1.0-4.8); Lymphocytes % (A) 5 %; MCH 30.2 pg (25.0-35.0); MCHC 30.1 g/dL (31.0-37.0); MCV 100.2 fL (80.0-100.0); Mean Platelet Volume 8.8; Monocytes # (A) 0.2 k/uL (0-1.0); Monocytes % (A) 3 %; Neutrophils # (A) 8.4 k/uL (1.3-7.7); Neutrophils % (A) 92 %; Platelet Count 182 k/uL (150-450); RBC 3.48 m/uL (3.80-5.40); RDW 12.6 % (11.5-15.5); WBC 9.1 k/uL (3.8-10.6)
[2021-08-26] MEDS: CYCLOBENZAPRINE 10 MG TAB PO PRN (01:56)
[2021-08-26] MEDS: HYDROcodone/APAP 10-325MG 1 EACH TAB PO PRN ×5 (01:56→21:12)
[2021-08-26] MEDS: SODIUM CHLORIDE 0.9% 1,000 ML IV SCH ×3 (05:45→15:27)
[2021-08-26] MEDS ORDERED: ONDANSETRON 4 MG/2 ML VIAL IVP PRN (07:00)
[2021-08-26] MEDS ORDERED: HYDROmorphone 0.5 MG/0.5 ML SYRINGE IVP PRN (07:00)
[2021-08-26] MEDS: ASPIRIN 325 MG TAB PO SCH (08:34)
[2021-08-26] MEDS: SENNOSIDES-DOCUSATE SODIUM 1 EACH TAB PO SCH (08:34)
--- NOTE | 2021-08-26 08:52 | P.PN ---
Progress Note - Text Progress Note Date: 08/26/21 Postoperative day #1 Patient is seen and examined today at bedside. The patient has some pain around the surgical site as expected. She says her leg is much more comfortable today. She is tolerating her diet well. She has not yet been out of bed. Pain is being controlled with medication. Physical Exam Afebrile with stable vital signs Abdomen is soft nontender. Chest has good excursion deep and space expiration The incision site is clean dry and intact. No erythema there is no purulence. Her thigh has some swelling but it is stable. There is no active drainage. There is no erythema. Extremities have not had neurologic change from prior to surgery. She has sustained dorsal flexion plantar flexion and EHL intact. Calves and thighs were soft nontender without evidence of DVT. Assessment/Plan Postoperative day #1 status post femoral intramedullary ellen fixation for midshaft femur fracture Patient is progressing as expected from the surgery. We will continue to increase the patient's mobilization with therapy. We will increase her mobilization and get her up today with therapy. It is okay for her to weight-bear as tolerated on left lower extremity. The swelling at her left thigh appears to be stable. She'll have her Fatima discontinued this morning. We will continue pain control with oral or IV medications. We'll continue to follow patient closely.
[2021-08-26 09:15] LABS: Anion Gap 12.2 mmol/L (10.00-18.00); BUN/Creat Ratio 9.11 Ratio (12.00-20.00); Carbon Dioxide 22.6 mmol/L (20.0-27.5); Non-African American GFR(CKD) 76.8 (60.0-200.0); Potassium 4.3 mmol/L (3.5-5.5)
[2021-08-26 09:22] LABS: Basophils # (A) 0.01 X 10*3/uL (0.00-0.10); Basophils % (A) 0.1 %; Eosinophils # (A) 0 X 10*3/uL (0.04-0.35); Eosinophils % (A) 0 %; HGB 8.5 g/dL (12.0-15.0); Immature Grans, Automated 0.3 %; Lymphocytes # (A) 1.15 X 10*3/uL (0.90-5.00); Lymphocytes % (A) 14.5 %; MCH 30.4 pg (27.0-32.0); MCHC 31.5 g/dL (32.0-37.0); MCV 96.4 fL (80.0-97.0); Mean Platelet Volume 10.3 fL (9.5-12.2); Monocytes # (A) 0.83 X 10*3/uL (0.20-1.00); Monocytes % (A) 10.4 %; NRBC Per 100 WBC 0 /100 WBCS (0.0-0.0); Neutrophils # (A) 5.94 X 10*3/uL (1.80-7.70); Neutrophils % (A) 74.7 %; Platelet Count 172 X 10*3/uL (140-440); RDW 12.9 % (11.5-14.5); WBC 7.95 X 10*3/uL (4.50-10.00)
--- NOTE | 2021-08-26 11:44 | P.CONS ---
History of Present Illness - Reason for Consult Consult date: 08/25/21 Medical management - Chief Complaint Fall/left hip pain - History of Present Illness 71-year-old female presenting to the emergency department with left leg pain. Patient slipped going down her wooden steps outside. Patient landed hard on her left leg and then landed on her left upper leg. Patient had deformity and severe discomfort left upper leg. EMS placed patient in traction and provided pain medications. Patient states discomfort is tolerable at this time. No syncope. No head injury or loss of consciousness. No neck or back pain. No other area of injury or concern. Lab work completed in ED reveals WBC of 9.1, hemoglobin of 10.5, platelet count of 182, sodium 135, potassium 4.6, BUN/creatinine of 16/0.94 X-ray of left femur reveals acute minimally displaced comminuted fracture of the mid to distal left femur Patient has been evaluated by orthopedic surgery and is recommended surgical intervention Review of Systems REVIEW OF SYSTEMS: CONSTITUTIONAL: No fever, no malaise, no fatigue. HEENT: No recent visual problems or hearing problems. Denied any sore throat. CARDIOVASCULAR: No chest pain, orthopnea, PND, no palpitations, no syncope. PULMONARY: No shortness of breath, no cough, no hemoptysis. GASTROINTESTINAL: No diarrhea, no nausea, no vomiting, no abdominal pain. NEUROLOGICAL: No headaches, no weakness, no numbness. HEMATOLOGICAL: Denies any bleeding or petechiae. GENITOURINARY: Denies any burning micturition, frequency, or urgency. MUSCULOSKELETAL/RHEUMATOLOGICAL: Left leg pain. ENDOCRINE: Denies any polyuria or polydipsia. The rest of the 14-point review of systems is negative. Past Medical History Past Medical History: Hypertension History of Any Multi-Drug Resistant Organisms: None Reported Past Surgical History: Back Surgery, Orthopedic Surgery Past Psychological History: No Psychological Hx Reported Smoking Status: Never smoker Past Alcohol Use History: Occasional Past Drug Use History: None Reported Medications and Allergies Home Medications Medication Instructions Recorded Confirmed Type ALPRAZolam [Xanax] 0.25 mg PO HS PRN 04/06/19 08/24/21 History Alendronate Sodium [Fosamax] 70 mg PO LOVE 04/06/19 08/24/21 History Citalopram Hydrobromide 40 mg PO DAILY 04/06/19 08/24/21 History [Citalopram HBr] Fexofenadine HCl [Stefania Allergy] 180 mg PO DAILY 04/06/19 08/24/21 History Gabapentin [Neurontin] 300 mg PO HS 04/06/19 08/24/21 History Meloxicam 7.5 mg PO DAILY 04/06/19 08/24/21 History Olmesartan Medoxomil [Benicar] 20 mg PO DAILY 04/06/19 08/24/21 History Oxybutynin Chloride [Oxybutynin 15 mg PO DAILY 04/06/19 08/24/21 History Chloride ER] Calcium Carbonate [Calcium] 1,200 mg PO BID 08/24/21 08/24/21 History [place]-3 1280mg 2 tab PO DAILY 08/24/21 08/24/21 History Allergies Allergy/AdvReac Type Severity Reaction Status Date / Time Penicillins Allergy RASH/SWELLI Verified 08/24/21 14:32 NG Physical Exam Vitals: Vital Signs Temp Pulse Pulse Resp BP BP Pulse Ox 08/25/21 07:05 98.8 F 88 17 91/47 90 L 08/25/21 02:00 98.8 F 90 18 125/65 90 L 08/24/21 19:54 98.1 F 87 18 133/74 92 L 08/24/21 17:18 97.9 F 87 20 178/76 08/24/21 16:14 70 18 143/78 94 L 08/24/21 15:28 74 18 145/89 95 08/24/21 14:28 72 18 138/76 95 08/24/21 13:16 98.1 F 76 16 121/75 94 L Intake and Output 08/24/21 08/25/21 08/25/21 22:59 06:59 14:59 Intake Total 150 Output Total 1750 400 Balance -1600 -400 Intake: Intake, IV Titration 150 Amount Sodium Chloride 0.9% 1, 150 000 ml @ 75 mls/hr IV . [id number] [facility] Rx#:[id number] Output: Urine 1750 400 Uretheral (Fatima) 750 Other: Voiding Method Indwelling Catheter Indwelling Catheter Weight 61.235 kg Results CBC & Chem 7: 08/26/21 04:39 08/26/21 04:39 Labs: Abnormal Lab Results - Last 24 Hours (Table) 08/24/21 Range/Units 15:54 Sodium 135 L (137-145) mmol/L Assessment and Plan Assessment: 1. Fall/comminuted fracture left femur - Patient has been evaluated by orthopedic surgery plans for surgical intervention this morning 2. Hypertension; stable on home dose of Benicar 20 mg daily 3. Urinary incontinence; oxybutynin 15 mg daily 4. Depression/anxiety; Xanax 0.25 mg daily at bedtime when necessary and Celexa 40 mg daily DVT prophylaxis; SCDs; we will primary team discretion CODE STATUS; full code
[2021-08-26] MEDS: LACTATED RINGERS 1,000 ML IV SCH (12:24)
[2021-08-26] MEDS ORDERED: ALPRAZolam 0.25 MG TAB PO PRN (13:57)
[2021-08-26] MEDS ORDERED: NON FORMULARY DRUG (Alendronate Sodium [Fosamax] 70 MG Tablet) PO SCH (14:00)
[2021-08-26] MEDS ORDERED: ULTIMATE OMEGA PO SCH (14:00)
[2021-08-26] MEDS: CITALOPRAM HYDROBROMIDE 20 MG TAB PO SCH (15:25)
[2021-08-26] MEDS: OXYBUTYNIN 15 MG TAB.ER.24 PO SCH (15:25)
[2021-08-26] MEDS: LORATADINE 10 MG TAB PO SCH (15:25)
[2021-08-26] MEDS: CALCIUM CARBONATE 500 MG CHEWABLE PO SCH ×2 (15:25→21:07)
[2021-08-26] MEDS: LOSARTAN 50 MG TAB PO SCH (15:26)
--- NOTE | 2021-08-26 19:43 | P.PN ---
Subjective Progress Note Date: 08/26/21 Principal diagnosis: Comminuted fracture left femoral shaft Status post Left femur intramedullary rodding with antegrade femoral nail Atrial fibrillation; anticoagulation with IV heparin bridge 71-year-old female presenting to the emergency department with left leg pain. Patient slipped going down her wooden steps outside. Patient landed hard on her left leg and then landed on her left upper leg. Patient had deformity and severe discomfort left upper leg. EMS placed patient in traction and provided pain medications. Patient states discomfort is tolerable at this time. No syncope. No head injury or loss of consciousness. No neck or back pain. No other area of injury or concern. Lab work completed in ED reveals WBC of 9.1, hemoglobin of 10.5, platelet count of 182, sodium 135, potassium 4.6, BUN/creatinine of 16/0.94 X-ray of left femur reveals acute minimally displaced comminuted fracture of the mid to distal left femur Patient has been evaluated by orthopedic surgery and is recommended surgical intervention Patient is postoperative day #1; has been cleared to resume anticoagulation therapy by orthopedic surgery Objective - Vital Signs Vital signs: Vital Signs Temp 97.5 F L 08/26/21 14:00 Pulse 74 08/26/21 14:00 Resp 18 08/26/21 14:00 BP 100/65 08/26/21 14:00 Pulse Ox 96 08/26/21 14:00 FiO2 Intake & Output 08/25/21 08/26/21 08/26/21 18:59 06:59 18:59 Intake Total 650 Output Total 400 1950 500 Balance 250 -1950 -500 Intake: IV 650 Output: Urine 200 1950 500 Uretheral (Fatima) 500 Estimated Blood Loss 200 Other: Voiding Method Indwelling Catheter Indwelling Catheter Indwelling Catheter - Exam PHYSICAL EXAMINATION: GENERAL: The patient is alert and oriented x3, not in any acute distress. Well developed, well nourished. HEENT: Pupils are round and equally reacting to light. EOMI. No scleral icterus. No conjunctival pallor. Normocephalic, atraumatic. No pharyngeal erythema. No thyromegaly. CARDIOVASCULAR: S1 and S2 present. No murmurs, rubs, or gallops. PULMONARY: Chest is clear to auscultation, no wheezing or crackles. ABDOMEN: Soft, nontender, nondistended, normoactive bowel sounds. No palpable organomegaly. MUSCULOSKELETAL: No joint swelling or deformity. EXTREMITIES: No cyanosis, clubbing, or pedal edema. NEUROLOGICAL: Gross neurological examination did not reveal any focal deficits. SKIN: No rashes. - Labs CBC & Chem 7: 08/26/21 04:39 08/26/21 04:39 Labs: Abnormal Lab Results - Last 24 Hours (Table) 08/25/21 08/26/21 08/26/21 Range/Units 17:41 04:39 04:39 RBC 3.48 L 2.80 L (3.80-5.40) m/uL Hgb 10.5 L 8.5 L (11.4-16.0) gm/dL Hct 27.0 L (37.2-46.3) % MCV 100.2 H (80.0-100.0) fL MCHC 30.1 L 31.5 L (31.0-37.0) g/dL Neutrophils # 8.4 H (1.3-7.7) k/uL Lymphocytes # 0.4 L (1.0-4.8) k/uL Eosinophils # 0 L (0.04-0.35) X 10*3/uL BUN 7.0 L (9.0-27.0) mg/dL BUN/Creatinine Ratio 9.11 L (12.00-20.00) Ratio Calcium 8.0 L (8.7-10.3) mg/dL Assessment and Plan Assessment: 1. Fall/comminuted fracture left femur - Patient has been evaluated by orthopedic surgery plans for surgical intervention this morning 2. Hypertension; stable on home dose of Benicar 20 mg daily 3. Urinary incontinence; oxybutynin 15 mg daily 4. Depression/anxiety; Xanax 0.25 mg daily at bedtime when necessary and Celexa 40 mg daily DVT prophylaxis; SCDs; we will primary team discretion CODE STATUS; full code
[2021-08-26] MEDS: GABAPENTIN 300 MG CAP PO SCH (21:07)
[2021-08-27] MEDS: SODIUM CHLORIDE 0.9% 1,000 ML IV SCH ×4 (00:19→20:16)
[2021-08-27] MEDS: HYDROcodone/APAP 10-325MG 1 EACH TAB PO PRN ×5 (03:11→19:07)
[2021-08-27] MEDS: CYCLOBENZAPRINE 10 MG TAB PO PRN (07:40)
[2021-08-27] MEDS: SENNOSIDES-DOCUSATE SODIUM 1 EACH TAB PO SCH (07:54)
[2021-08-27] MEDS: CALCIUM CARBONATE 500 MG CHEWABLE PO SCH ×2 (07:54→20:15)
[2021-08-27] MEDS: LOSARTAN 50 MG TAB PO SCH (07:55)
[2021-08-27] MEDS: OXYBUTYNIN 15 MG TAB.ER.24 PO SCH (07:55)
[2021-08-27] MEDS: LORATADINE 10 MG TAB PO SCH (07:55)
[2021-08-27] MEDS: ASPIRIN 325 MG TAB PO SCH (07:55)
[2021-08-27] MEDS: CITALOPRAM HYDROBROMIDE 20 MG TAB PO SCH (07:55)
--- NOTE | 2021-08-27 10:37 | P.PN ---
Progress Note - Text Progress Note Date: 08/27/21 Orthopedics: History of present illness: Patient is a very pleasant 71-year-old female who is seen and examined at bedside for follow-up evaluation for her left femur. She is status post left femur intramedullary rodding with antegrade femoral nail for acute traumatic left femur shaft fracture with angulation and displacement due to fall. Patient has been progressing well postoperatively. She's been able to ambulate better on her left lower extremity. She feels her left lower extremity pain is better controlled. She's been utilizing a walker to aid in ambulation. She is eating without difficulty. If she continues to improve, she does so she'll be ready for discharge home with family tomorrow. Her Fatima catheter has been discontinued. She is voiding without difficulty. Physical Exam: Status post surgical day number 2 Patient is examined lying in bed Patient is awake and alert, and oriented 3 Vital signs stable Good chest excursion with deep inspiration and expiration No signs or symptoms of DVT; no calf pain Lower extremity cuffs not currently in place bilaterally Dressings over the left hip and femur are clean, dry, and intact; no erythema, purulence, or signs of infection No significant pain on palpation over the surgical sites Some swelling around the left femur Some bruising over the femur at the middle surgical site Full range of motion of ankles bilaterally Dorsiflexion, plantarflexion, and extensor hallucis longus positive sustained bilaterally Neurovascularly intact bilateral lower extremities Capillary refill less than 2 seconds bilateral lower extremities Assessment: Status post left femur intramedullary rodding with antegrade femoral nail Acute traumatic left femur shaft fracture with angulation and displacement Status post fall Left femur pain Hypertension Plan: 1. Patient may continue to weight-bear as tolerated on the left lower extremity and she is encouraged to utilize a walker to aid in ambulation as needed 2. Continue pain control oral [place] 10 mg/325 mg and cyclobenzaprine 10 mg as prescribed as needed for pain control; we will plan to prescribe these medications at the time of discharge 3. The patient continues to improve, we'll plan for discharge home with family tomorrow, 08/28/2021 4. Patient will continue to be seen and examined by medicine for her other medical diagnoses 5. Following discharge, patient will plan to follow up with José Miguel Butler PA-C or Dr. David Pasia at [facility] in 2-3 weeks following discharge
[2021-08-27 12:57] LABS: Basophils % (A) 0 %; Eosinophils # (A) 0.2 k/uL (0-0.7); Eosinophils % (A) 3 %; HCT 31.3 % (34.0-46.0); HGB 10.1 gm/dL (11.4-16.0); Lymphocytes # (A) 1.4 k/uL (1.0-4.8); Lymphocytes % (A) 23 %; MCH 31.4 pg (25.0-35.0); MCHC 32.1 g/dL (31.0-37.0); MCV 97.9 fL (80.0-100.0); Mean Platelet Volume 8.9; Monocytes # (A) 0.5 k/uL (0-1.0); Monocytes % (A) 8 %; Neutrophils # (A) 3.9 k/uL (1.3-7.7); Neutrophils % (A) 65 %; Platelet Count 170 k/uL (150-450); RDW 12.6 % (11.5-15.5)
[2021-08-27] MEDS: LACTATED RINGERS 1,000 ML IV SCH (14:04)
--- NOTE | 2021-08-27 17:40 | P.PN ---
Subjective From the records: 71-year-old female presenting to the emergency department with left leg pain. Patient slipped going down her wooden steps outside. Patient landed hard on her left leg and then landed on her left upper leg. Patient had deformity and severe discomfort left upper leg. EMS placed patient in traction and provided pain medications. Patient states discomfort is tolerable at this time. No syncope. No head injury or loss of consciousness. No neck or back pain. No other area of injury or concern. Lab work completed in ED reveals WBC of 9.1, hemoglobin of 10.5, platelet count of 182, sodium 135, potassium 4.6, BUN/creatinine of 16/0.94 X-ray of left femur reveals acute minimally displaced comminuted fracture of the mid to distal left femur Patient has been evaluated by orthopedic surgery and is recommended surgical intervention I'm resuming the care of the patient today 08/27/2021 This is a pleasant 71 years old female who presents because of fall, patient told me she was outside on on porch steps where she tripped because of the slippery wet floor was fulgurated. She denies dizziness, no loss of consciousness, no vomiting or diarrhea or abdominal pain. No chest pain, no dysuria or urgency, no headache, no numbness or weakness. Patient is hemodynamically stable. Patient is currently on IV fluid 75 mL/h, afebrile. Hemoglobin improved to 10.1. BMP normal. Chest x-ray negative. Patient on aspirin 325 mg daily. Objective - Vital Signs Vital signs: Vital Signs Temp 97.9 F 08/27/21 08:00 Pulse 85 08/27/21 08:00 Resp 18 08/27/21 08:00 BP 113/79 08/27/21 08:00 Pulse Ox 93 L 08/27/21 08:00 FiO2 Intake & Output 08/26/21 08/27/21 08/27/21 18:59 06:59 18:59 Intake Total 1000 Output Total 500 Balance -500 1000 Intake: Oral 1000 Output: Urine 500 Uretheral (Fatima) 500 Other: Voiding Method Indwelling Catheter # Voids 1 2 - Exam GENERAL: The patient is alert and oriented x3, not in any acute distress. Well developed, well nourished. HEENT: Pupils are round and equally reacting to light. EOMI. No scleral icterus. No conjunctival pallor. Normocephalic, atraumatic. No pharyngeal erythema. No thyromegaly. CARDIOVASCULAR: S1 and S2 present. No murmurs, rubs, or gallops. PULMONARY: Chest is clear to auscultation, no wheezing or crackles. ABDOMEN: Soft, nontender, nondistended, normoactive bowel sounds. No palpable organomegaly. MUSCULOSKELETAL: No joint swelling or deformity. -EXTREMITIES: No cyanosis, clubbing, or pedal edema. Left surgical wound, rest of exam is deferred to surgery team NEUROLOGICAL: Gross neurological examination did not reveal any focal deficits. SKIN: No rashes. no petechiae. - Labs CBC & Chem 7: 08/27/21 12:53 08/26/21 04:39 Assessment and Plan Assessment: Fall without dizziness or loss of consciousness post op anemia , mild and expected post op borederline low bp, improved generalized weakness, subacute rehab is recommended for the pt urinary incontinence h/o depression , no active issue Plan: This is a pleasant 71 years old female status post fall and left femoral fracture and surgical repair Patient clinically is improving and doing well. Continue gentle hydration Check urine analysis Bladder scan was negative as 0 from yesterday. Labs and medication were reviewed.. Continue same treatment. Continue with symptomatic treatment. Resume home medication. Monitor lytes and vitals. DVT and GI prophylaxis. Further recommendations as per clinical course of the patient DVT prophylaxis: Is deferred to surgery team GI Prophylaxis: Pepcid PT/OT: Recommended subacute rehab Thank you for consulting us
[2021-08-27] MEDS: GABAPENTIN 300 MG CAP PO SCH (20:15)
[2021-08-28] MEDS: SODIUM CHLORIDE 0.9% 1,000 ML IV SCH ×2 (01:56→09:37)
[2021-08-28] MEDS: HYDROcodone/APAP 10-325MG 1 EACH TAB PO PRN ×3 (01:58→12:23)
[2021-08-28 02:26] VITALS: TEMP 98.1
[2021-08-28] MEDS: ASPIRIN 325 MG TAB PO SCH (08:24)
[2021-08-28] MEDS: OXYBUTYNIN 15 MG TAB.ER.24 PO SCH (08:24)
[2021-08-28] MEDS: LOSARTAN 50 MG TAB PO SCH (08:24)
[2021-08-28] MEDS: CALCIUM CARBONATE 500 MG CHEWABLE PO SCH (08:24)
[2021-08-28] MEDS: CITALOPRAM HYDROBROMIDE 20 MG TAB PO SCH (08:24)
[2021-08-28] MEDS: LORATADINE 10 MG TAB PO SCH (08:24)
[2021-08-28] MEDS: SENNOSIDES-DOCUSATE SODIUM 1 EACH TAB PO SCH (08:24)
[2021-08-28 08:37] VITALS: BP 153/88; PULSE 84; RESP 17
--- NOTE | 2021-08-28 08:48 | P.DS ---
Providers Date of admission: 08/24/21 14:41 Expected date of discharge: 08/28/21 Attending physician: Radha Bautista Consults: 08/24/21 14:41 Consult Physician Routine Consulting Provider: Abdi Subramanian Consult Reason/Comments: medical care Do you want consulting provider notified?: Yes Primary care physician: Pricilla Gomez - Discharge Diagnosis(es) (1) Status post fall Current Visit: Yes Status: Acute (2) Left leg pain Current Visit: Yes Status: Acute (3) Muscle spasm of left lower extremity Current Visit: Yes Status: Acute (4) Femur fracture, left Current Visit: Yes Status: Acute (5) Hypertension Current Visit: No Status: Acute Hospital Course: This is a pleasant very pleasant 71-year-old female who presented with acute traumatic displaced comminuted fracture of the mid to distal diaphysis of the left femur status post fall. She was admitted for further treatment and evaluation. She underwent left femur intramedullary rodding with antegrade femoral nail. The patient tolerated the procedure well and did well postoperatively. Her pain has been well controlled postoperatively. She has been able to continue to increase her mobility and ambulation. She is weightbearing as tolerated on left lower extremity with the assistance of a walker. She feels she is ready for discharge today. Condition on day of discharge stable. Patient will be discharged home. Patient was cleared preoperatively for surgery by Dr. Tellez. Patient currently denies any nausea, vomiting, fever, or chills. Patient is eating and voiding freely without difficulty. Patient may shower Optifoam dressings intact. Patient may remove Optifoam dressing in 3 days and shower without a dressing at that time. Patient should refrain from driving until at least after their first follow-up appointment in the office. Patient may continue to utilize a walker to aid in ambulation as needed. She has to walkers at home. MAPS has been reviewed today, 08/28/2021, with an Overall Overdose Risk Score of 220. An "Opiod Start Talking" Form has been signed and placed in the patient's chart. A prescription has been written for [place] 10 mg/325 mg 1 every 6 hours as needed for pain, dispensed #28. She is also given a prescription for cyclobenzaprine 10 mg 1 tab 3 times a day as needed for muscle spasm, dispensed #60. Patient's other medical diagnoses include hypertension. She may resume her other previously prescribed home medications following discharge. Physical Exam on day of discharge: Status post surgical day number 3 Patient is examined lying in bed Patient is awake and alert, and oriented 3 Vital signs stable Good chest excursion with deep inspiration and expiration No signs or symptoms of DVT; no calf pain Lower extremity cuffs not currently in place bilaterally Dressings over the left hip and femur are dry and intact; no erythema, purulence, or signs of infection Evidence of some dry blood over the middle surgical site without change No significant pain on palpation over the surgical sites Some swelling around the left femur Some bruising over the femur at the middle surgical site Full range of motion of ankles bilaterally Dorsiflexion, plantarflexion, and extensor hallucis longus positive sustained bilaterally Neurovascularly intact bilateral lower extremities Capillary refill less than 2 seconds bilateral lower extremities Procedures: Status post left femur intramedullary rodding with antegrade femoral nail for acute traumatic displaced comminuted fracture of the mid to distal diaphysis of the left femur Patient Condition at Discharge: Stable Plan - Discharge Summary Discharge Rx Participant: Yes New Discharge Prescriptions: New Cyclobenzaprine [Flexeril] 10 mg PO TID PRN #60 tab PRN Reason: Muscle Spasm HYDROcodone/APAP 10-325MG [[place] 10] 1 each PO Q6H PRN #28 tab PRN Reason: Pain No Action Gabapentin [Neurontin] 300 mg PO HS ALPRAZolam [Xanax] 0.25 mg PO HS PRN PRN Reason: Anxiety Oxybutynin Chloride [Oxybutynin Chloride ER] 15 mg PO DAILY Meloxicam 7.5 mg PO DAILY Fexofenadine HCl [Stefania Allergy] 180 mg PO DAILY Citalopram Hydrobromide [Citalopram HBr] 40 mg PO DAILY Olmesartan Medoxomil [Benicar] 20 mg PO DAILY Alendronate Sodium [Fosamax] 70 mg PO LOVE Ultimate Olympia-3 1280mg 2 tab PO DAILY Calcium Carbonate [Calcium] 1,200 mg PO BID Discharge Medication List ALPRAZolam [Xanax] 0.25 mg PO HS PRN 04/06/19 [History] Alendronate Sodium [Fosamax] 70 mg PO LOVE 04/06/19 [History] Citalopram Hydrobromide [Citalopram HBr] 40 mg PO DAILY 04/06/19 [History] Fexofenadine HCl [Stefania Allergy] 180 mg PO DAILY 04/06/19 [History] Gabapentin [Neurontin] 300 mg PO HS 04/06/19 [History] Meloxicam 7.5 mg PO DAILY 04/06/19 [History] Olmesartan Medoxomil [Benicar] 20 mg PO DAILY 04/06/19 [History] Oxybutynin Chloride [Oxybutynin Chloride ER] 15 mg PO DAILY 04/06/19 [History] Calcium Carbonate [Calcium] 1,200 mg PO BID 08/24/21 [History] Ultimate Olympia-3 1280mg 2 tab PO DAILY 08/24/21 [History] Cyclobenzaprine [Flexeril] 10 mg PO TID PRN #60 tab 08/28/21 [Rx] HYDROcodone/APAP 10-325MG [[place] 10] 1 each PO Q6H PRN #28 tab 08/28/21 [Rx] Follow up Appointment(s)/Referral(s): José Miguel Butler PAC [PHYSIC[facility] [employer] [facility]] - 09/07/21 1:00 pm (Patient may follow-up with José Miguel Butler PA-C or Dr. David Bautista at [facility] in 2-3 weeks following discharge. ) Pricilla Gomez MD [Primary Care Provider] - 08/30/21 10:40 am Patient Instructions/Handouts: Leg Fracture (DC) Activity/Diet/Wound Care/Special Instructions: 1. Weightbearing as tolerated on the left lower extremity 2. Patient is encouraged to utilize a walker to aid in ambulation 3. Keep dressings over the surgical sites intact 4. Patient may shower with dressings intact of the surgical sites 5. If surgical dressings remain clean, dry, and intact over the next 72 hours, patient may remove dressings and shower without a dressing at that time 6. Take medications as prescribed Discharge Disposition: HOME SELF-CARE
[2021-08-28] MEDS ORDERED: FAMOTIDINE 20 MG TAB PO SCH (09:00)
[2021-08-28] MEDS: LACTATED RINGERS 1,000 ML IV SCH (09:37)
--- NOTE | 2021-08-28 11:45 | P.PN ---
Subjective From the records: 71-year-old female presenting to the emergency department with left leg pain. Patient slipped going down her wooden steps outside. Patient landed hard on her left leg and then landed on her left upper leg. Patient had deformity and severe discomfort left upper leg. EMS placed patient in traction and provided pain medications. Patient states discomfort is tolerable at this time. No syncope. No head injury or loss of consciousness. No neck or back pain. No other area of injury or concern. Lab work completed in ED reveals WBC of 9.1, hemoglobin of 10.5, platelet count of 182, sodium 135, potassium 4.6, BUN/creatinine of 16/0.94 X-ray of left femur reveals acute minimally displaced comminuted fracture of the mid to distal left femur Patient has been evaluated by orthopedic surgery and is recommended surgical intervention I'm resuming the care of the patient today 08/27/2021 This is a pleasant 71 years old female who presents because of fall, patient told me she was outside on on porch steps where she tripped because of the slippery wet floor was fulgurated. She denies dizziness, no loss of consciousness, no vomiting or diarrhea or abdominal pain. No chest pain, no dysuria or urgency, no headache, no numbness or weakness. Patient is hemodynamically stable. Patient is currently on IV fluid 75 mL/h, afebrile. Hemoglobin improved to 10.1. BMP normal. Chest x-ray negative. Patient on aspirin 325 mg daily. Patient is clinically doing well, she is asymptomatic, she denies any chest pain or dyspnea. No change in urine or bowel habits. No fever. Patient denies any urinary symptoms, no dysuria or urgency, no suprapubic tenderness. The patient denies any other symptoms Patient is control and surgical wound is closed. Hemodynamically stable. Blood pressure improved and patient is eating well, creatinine normal and IV fluids can be discontinued. Patient looks medically stable Physical therapy recommended subacute rehab, I talked to the patient but she declines once wants to go home we will defer that decision to the surgical primary team We recommend patient follow up with PCP Dr. Gomez in 1 week after discharge and patient was instructed with the same and she agrees Objective - Vital Signs Vital signs: Vital Signs Temp 98.1 F 08/28/21 08:00 Pulse 84 08/28/21 08:00 Resp 17 08/28/21 08:00 BP 153/88 08/28/21 08:00 Pulse Ox 95 08/28/21 08:00 FiO2 Intake & Output 08/27/21 08/28/21 08/28/21 18:59 06:59 18:59 Other: # Voids 1 1 # Bowel Movements 0 - Exam GENERAL: The patient is alert and oriented x3, not in any acute distress. Well developed, well nourished. HEENT: Pupils are round and equally reacting to light. EOMI. No scleral icterus. No conjunctival pallor. Normocephalic, atraumatic. No pharyngeal erythema. No thyromegaly. CARDIOVASCULAR: S1 and S2 present. No murmurs, rubs, or gallops. PULMONARY: Chest is clear to auscultation, no wheezing or crackles. ABDOMEN: Soft, nontender, nondistended, normoactive bowel sounds. No palpable organomegaly. MUSCULOSKELETAL: No joint swelling or deformity. -EXTREMITIES: No cyanosis, clubbing, or pedal edema. Left surgical wound, rest of exam is deferred to surgery team NEUROLOGICAL: Gross neurological examination did not reveal any focal deficits. SKIN: No rashes. no petechiae. - Labs CBC & Chem 7: 08/27/21 12:53 08/26/21 04:39 Labs: Abnormal Lab Results - Last 24 Hours (Table) 08/27/21 Range/Units 12:53 RBC 3.20 L (3.80-5.40) m/uL Hgb 10.1 L (11.4-16.0) gm/dL Hct 31.3 L (34.0-46.0) % Assessment and Plan Assessment: Fall without dizziness or loss of consciousness Left femoral fracture status post surgical repair post op anemia , mild and expected post op borederline low bp, improved generalized weakness, subacute rehab is recommended for the pt urinary incontinence h/o depression , no active issue Plan: This is a pleasant 71 years old female status post fall and left femoral fracture and surgical repair Patient clinically is improving and doing well. Discontinue IV fluids Urine analysis is pending tinue with symptomatic treatment. Resume home medication. Monitor lytes and vitals. DVT and GI prophylaxis. Further recommendations as per clinical course of the patient DVT prophylaxis: Is deferred to surgery team GI Prophylaxis: Pepcid PT/OT: Recommended subacute rehab, patient declines Patient is medically looks stable Thank you for consulting us
[2021-08-28] MEDS: CYCLOBENZAPRINE 10 MG TAB PO PRN (12:23)
== END 2021-08-28 12:35 | disposition home or self-care (01) | DRG 482 ==
LOC: EC 13:13 → 4SSUR 14:41
PROVIDERS: ADMIT Orthopaedic Surgery Orthopaedic Surgery of the Spine; ATTEND Orthopaedic Surgery Orthopaedic Surgery of the Spine
PROC: 3E0T3BZ Introduction of Anesthetic Agent into Peripheral Nerves and Plexi, Percutaneous Approach (ICD-10-PCS; principal; 2021-08-25 11:10)
PROC: 0QS906Z Reposition Left Femoral Shaft with Intramedullary Internal Fixation Device, Open Approach (ICD-10-PCS; principal; 2021-08-25 11:10)
DX: S72.352A Displaced comminuted fracture of shaft of left femur, initial encounter for closed fracture (principal); F32.A Depression, unspecified; F41.9 Anxiety disorder, unspecified; I10 Essential (primary) hypertension; W10.8XXA Fall (on) (from) other stairs and steps, initial encounter; Z79.1 Long term (current) use of non-steroidal anti-inflammatories (NSAID); Z79.82 Long term (current) use of aspirin; Z79.83 Long term (current) use of bisphosphonates; Z79.899 Other long term (current) drug therapy; Z91.81 History of falling; Y92.009 Unspecified place in unspecified non-institutional (private) residence as the place of occurrence of the external cause; R32 Unspecified urinary incontinence; M62.838 Other muscle spasm
CPT/HCPCS: 64445; 64447; 71045; 76942; 80048; 85025; 85610; 85730; 88304; 88311; 93005; 96374; 99285

== ENCOUNTER → 2021-09-05 | Outpatient (CLI) | payer MEDICARE ==
--- NOTE | 2021-09-06 14:04 | US ---
EXAMINATION TYPE: US venous doppler duplex LE LT DATE OF EXAM: 09/05/2021 3:29 PM COMPARISON: NONE CLINICAL HISTORY: R22.42 SWELLING LEG. Left leg swelling following femur break 10 days ago SIDE PERFORMED: Left TECHNIQUE: The lower extremity deep venous system is examined utilizing real time linear array sonog yessenia with graded compression, doppler sonography and color-flow sonography. VESSELS IMAGED: Common Femoral Vein Deep Femoral Vein Greater Saphenous Vein * Femoral Vein Popliteal Vein Small Saphenous Vein * Proximal Calf Veins (* superficial vessels) Left Leg: Appears negative for DVT IMPRESSION: 1. Left lower extremity ultrasound negative for deep venous thrombosis.
== END | disposition home or self-care (01) ==
LOC: RADUSWWP 15:28
PROVIDERS: ATTEND Internal Medicine
DX: R22.42 Localized swelling, mass and lump, left lower limb (principal)

== ENCOUNTER → 2022-06-18 | Outpatient (CLI) | payer MEDICARE ==
--- NOTE | 2022-06-18 15:44 | XR ---
EXAMINATION TYPE: XR cervical spine comp DATE OF EXAM: 06/18/2022 3:32 PM INDICATION: Patient age:Female; 72 years old; Reason for study: [id number] CERVICALGIA; [facility]. COMPARISON: None TECHNIQUE: The cervical spine was imaged in frontal, lateral, bilateral oblique, and open-mouth proje ctions. FINDINGS: The osseous structures show normal alignment without evidence of an acute fracture. There are osteoph ytes noted throughout the cervical spine on the anterior and lateral aspects of the vertebral bodies. Grade 1 anterolisthesis of C4 on C5. Multilevel facet arthropathy. Multilevel mild disc space narrow ing which is most pronounced at C4-C5 and C5-C6. Pedicles are intact. Soft tissues are within normal limits. The odontoid appears intact. IMPRESSION: 1. No fracture or dislocation. 2. Mild degenerative disc disease changes of the cervical spine. 3. Grade 1 anterolisthesis of C4 on C5.
== END | disposition home or self-care (01) ==
LOC: RADXRYALE 15:18
PROVIDERS: ATTEND Internal Medicine
DX: M50.30 Other cervical disc degeneration, unspecified cervical region (principal); M43.12 Spondylolisthesis, cervical region; M47.812 Spondylosis without myelopathy or radiculopathy, cervical region; M50.222 Other cervical disc displacement at C5-C6 level
CPT/HCPCS: 72050